=== PATIENT | female | born 1935 ===

== ENCOUNTER 2019-02-22 15:21 | Inpatient (IN) | payer MEDICARE, MEDICAID ==
[2019-02-22 15:42] VITALS: BMI 26.2
--- NOTE | 2019-02-22 16:22 | ED PDOC ---
Arrival/HPI - General Chief Complaint: Lower Extremity Problem/Injury Historian: Patient, Family - History of Present Illness Narrative History of Present Illness (Text): 02/22/19 16:51 Patient is an 84 yo female past medical history of atrial fibrillation on eliquis, also recent hospitalization reportedly for pneumonia, presents with daughter from Dr. Arrington's office for evaluation of weakness as well as episode of "low blood pressure" over the past 1-2 days. Patient reportedly was found to have a "blood pressure in the 70s" as per family at Dr. Arrington's office. Also during her recent hospitalization she was noted to have "hyrdornephosis and hydr oureter" and has complained of some chills. Patient currently denies any pain or discomfort. She denies any dizziness or lightheadedness and no change in behavior has been noted by family. She does report that occasionally she complains of leg pain but no cough or shortness of breath reported. She reportedly had uterine prolapase treated by production control clerk yesterday and has history of rectal prolapse. She currently denies any rectal or plevic pain or bleeding. Time/Duration: Prior to Arrival Symptom Onset: Gradual Past Medical History - Provider Review Nursing Documentation Reviewed: Yes - Cardiac Hx Atrial Fibrillation: Yes Hx Hypertension: Yes - Pulmonary Hx Chronic Obstructive Pulmonary Disease (COPD): Yes Hx Emphysema: Yes - HEENT Other/Comment: Hard of hearing - Renal Hx Renal Disorder: Yes - Endocrine/Metabolic Hx Diabetes Mellitus Type 2: Yes - Gastrointestinal Other/Comment: Rectal prolapse - Psychiatric Hx Depression: Yes Hx Substance Use: No Family/Social History - Physician Review Nursing Documentation Reviewed: Yes Family/Social History: Unknown Family HX Smoking Status: Never Smoked Hx Alcohol Use: No Hx Substance Use: No Allergies/Home Meds Allergies/Adverse Reactions: Allergies No Known Allergies Allergy (Verified 02/22/19 15:42) Home Medications: Home Meds Medication Instructions Recorded Confirmed Apixaban [Eliquis] 2.5 mg PO BID 02/23/19 02/23/19 Aspirin [Aspirin Chewable] 81 mg PO DAILY 02/23/19 02/23/19 Atorvastatin [Lipitor] 20 mg PO DIN 02/23/19 02/23/19 Clonazepam [Klonopin] 0.5 mg PO HS 02/23/19 02/23/19 Cyproheptadine [Periactin] 4 mg PO DAILY 02/23/19 02/23/19 Diltiazem HCl [Cartia Xt] 180 mg PO DAILY 02/23/19 02/23/19 Docusate [Colace] 200 mg PO DAILY 02/23/19 02/23/19 Megestrol Acetate [Megace] 40 mg PO DAILY 02/23/19 02/23/19 Montelukast [Singulair] 10 mg PO HS 02/23/19 02/23/19 Mv,Min10/Folic Acid/D3/Ala/Lut 1 tab PO DAILY 02/23/19 02/23/19 [Strovite One Caplet] SITagliptin [Januvia] 50 mg PO DAILY 02/23/19 02/23/19 Sertraline [Zoloft] 100 mg PO DAILY 02/23/19 02/23/19 Review of Systems - Review of Systems Systems not reviewed;Unavailable: Language Barrier (daughter translates) Constitutional: Fatigue. absent: Fevers Eyes: absent: Vision Changes ENT: absent: Hearing Changes Respiratory: absent: SOB, Cough Cardiovascular: absent: Chest Pain, Palpitations Gastrointestinal: Stool Changes. absent: Abdominal Pain, Constipation, Vomiting, Food Intolerance Genitourinary Female: Vaginal Discharge. absent: Dysuria, Frequency, Hematuria Musculoskeletal: absent: Back Pain Skin: absent: Rash Neurological: absent: Headache, Dizziness, Focal Weakness Endocrine: absent: Polyuria Hemo/Lymphatic: absent: Easy Bleeding Psychiatric: absent: Depression Physical Exam Vital Signs Reviewed: Yes Vital Signs Temp Pulse Resp BP Pulse Ox 02/22/19 15:42 98.3 F 88 18 100/59 L 99 Temperature: Afebrile Blood Pressure: Hypotensive Pulse: Regular Respiratory Rate: Normal Appearance: Positive for: Well-Appearing, Non-Toxic, Comfortable - Systems Exam Head: Present: Atraumatic Pupils: Present: PERRL Extroacular Muscles: Present: EOMI Mouth: Present: Moist Mucous Membranes Pharnyx: No: ERYTHEMA Neck: Present: Normal Range of Motion. No: Meningeal Signs Respiratory/Chest: Present: Clear to Auscultation. No: Respiratory Distress Cardiovascular: Present: Murmurs, Irregular Rhythm Abdomen: No: Tenderness, Distention Rectal: Present: Other (no prolapse currently, some irritaion around anus, stool is brown with no active bleeding) Genitourinary/Pelvic Exam: Present: Other (exam performed with RN call center trainer at 1945. Patient with no prolapse noted, no active bleeding, there is mild erythem and irriation around vulva but no ulcerations or active bleeding or purulence) Back: No: CVA Tenderness Upper Extremity: Present: NORMAL PULSES. No: Edema Lower Extremity: Present: CALF TENDERNESS, Other (mild pain to left knee but no warmth or eyrhthema, no hip pain) Neurological: Present: Motor Func Grossly Intact, Normal Sensory Function Skin: Present: Warm Psychiatric: Present: Alert, Normal Insight Medical Decision Making ED Course and Treatment: 02/22/19 16:20 Impression:Patient sent for evaluation by Dr. Arrington. On initial exam, mildly hypotensive although no complaints of dizziness, chest pain, shortenss of breath, or lightheadedness. Blood pressure improved without intervention. She is in atrial fibrillation which she has prior hx of of, rate controlled. No active pelvic or rectal bleeding noted. Daughter states patient had CT obtained on 02/10/19 which read "bilateral hydronephrosis and hydroureter. 2mm nonobstructing calculus of the distal left ureter" as per radiology report by Dr. Chuy Good. She denies any abdominal or back pain. UA pending at this time. Progress Notes: 02/22/19 18:27 Ultrasound lower extremity reviewed by radiologist, shows: No sonographic evidence for deep venous thrombosis in the visualized segments of both lower extremities. 02/22/19 20:07 With serial exams, she remains comfortable with improved blood pressure. WBC elevated, although afebrile, no cough or respiratroy symptoms, and lactate unremarkable. She is not tachycardic or hypotensive or febrile currently. Case discussed with Dr. Harp who requests telemetry admission based on episodes of weakness and hypotension prior to arrival. Daughter and patient updated with treatment plan. - RAD Interpretation Radiology Orders: 02/22/19 16:03 CHEST ONE VIEW [RAD] Stat 02/22/19 16:04 DUPLEX LOWER EXTRM VEIN BILAT [US] Stat - EKG Interpretation EKG Interpretation (Text): EKG at 1647 atrial fibrillation rate of 84 with low voltage qrs, Interpreted by ED Physician: Yes Type: 12 lead EKG - Scribe Statement The provider has reviewed the documentation as recorded by the Farshadibmandy Tony All medical record entries made by the Farshadibe were at my direction and personally dictated by me. I have reviewed the chart and agree that the record accurately reflects my personal performance of the history, physical exam, medical decision making, and the department course for this patient. I have also personally directed, reviewed, and agree with the discharge instructions and disposition. Disposition/Present on Arrival - Present on Arrival Any Indicators Present on Arrival: No History of DVT/PE: No History of Uncontrolled Diabetes: No Urinary Catheter: No History of Decub. Ulcer: No History Surgical Site Infection Following: None - Disposition Have Diagnosis and Disposition been Completed?: Yes Diagnosis: Hypotension, Leukocytosis, Hydronephrosis Disposition: HOSPITALIZED Disposition Time: 20:12 Patient Plan: Admission, Telemetry Patient Problems: Current Active Problems Problem Status Onset Hydronephrosis Acute Hypotension Acute Leukocytosis Acute Condition: FAIR
[2019-02-22 16:57] LABS: BASO # 0.03 K/mm3 (0.0-2.0); BASO % 0.2 % (0.0-3.0); EOS # 0.1 (0.0-0.7); EOS % 0.4 % (1.5-5.0); HEMOGLOBIN 11.1 g/dL (12.0-16.0); LYMPH # 2.3 (1.2-3.4); LYMPH % 13.9 % (22.0-35.0); MEAN CELL VOLUME 83.8 fl (80.0-105.0); MEAN CORPUSCULAR HEMOGLOBIN 26.4 pg (25.0-35.0); MEAN CORPUSCULAR HGB CONC 31.4 g/dl (31.0-37.0); MEAN PLATELET VOLUME 8.4 fl (7.0-11.0); MONO # 1.2 (0.1-0.6); MONO % 7.1 % (1.0-6.0); RBC 4.21 10^6/uL (3.5-6.1); RED CELL DISTRIBUTION WIDTH 16.7 % (11.5-14.5); WHITE BLOOD COUNT 16.4 10^3/uL (4.5-11.0)
[2019-02-22 17:02] LABS: VENOUS BLOOD GAS BASE EXCESS -1.3 mmol/L (0.0-2.0); VENOUS BLOOD GAS PO2 35 mm/Hg (30-55); VENOUS BLOOD PH 7.36 (7.32-7.43)
[2019-02-22 17:03] LABS: INR 1.41; PARTIAL THROMBOPLASTIN TIME 30.8 Seconds (26.9-38.3); PROTHROMBIN TIME 15.7 SECONDS (9.4-12.5)
[2019-02-22 17:28] LABS: ALB/GLOB RATIO 1.1 (1.1-1.8); ALBUMIN 3.5 g/dL (3.0-4.8); ALT/SGPT 31 U/L (7-56); AST/SGOT 66 U/L (14-36); BLOOD UREA NITROGEN 36 mg/dL (7-21); CALCIUM 9.2 mg/dL (8.4-10.5); GFR NON-AFRICAN AMERICAN 53
[2019-02-22 17:40] LABS: B-TYPE NATRIURETIC PEPTIDE 828 pg/mL (0-450); TROPONIN I < 0.01 ng/mL
--- NOTE | 2019-02-22 17:52 | US ---
HISTORY: Leg pain and swelling. Evaluate for DVT PHYSICIAN(S): Chuy Garrido MD. TECHNIQUE: Duplex sonography and color-flow Doppler with graded compression were used to evaluate the deep venous systems of both lower extremities. FINDINGS: The visualized deep venous systems of both lower extremities are sonographically normal and compressible. Normal wave forms and augmentation are seen. There is no sonographic evidence for deep venous thrombosis in the visualized segments of both lower extremities. IMPRESSION: No sonographic evidence for deep venous thrombosis in the visualized segments of both lower extremities.
[2019-02-22 19:35] LABS: PH,URINE 6.5 (4.7-8.0); URINE APPEARANCE CLEAR (CLEAR); URINE BILIRUBIN NEGATIVE (NEGATIVE); URINE BLOOD NEGATIVE (NEGATIVE); URINE COLOR LIGHT YELLOW (YELLOW); URINE GLUCOSE (UA) NEGATIVE (NEGATIVE); URINE LEUKOCYTE ESTERASE NEGATIVE Leu/uL (NEGATIVE); URINE PROTEIN NEGATIVE mg/dL (<30 mg/dL); URINE UROBILINOGEN 0.2 E.U./dL (<1 E.U./dL)
[2019-02-23] MEDS: Sodium Chloride 0.9% 1,000 ML IV SCH ×2 (01:08→21:55)
[2019-02-23 07:02] LABS: HEMOGLOBIN 10.6 g/dL (12.0-16.0); MEAN CELL VOLUME 82.6 fl (80.0-105.0); MEAN CORPUSCULAR HEMOGLOBIN 25.7 pg (25.0-35.0); MEAN CORPUSCULAR HGB CONC 31.1 g/dl (31.0-37.0); MEAN PLATELET VOLUME 8.6 fl (7.0-11.0); RBC 4.13 10^6/uL (3.5-6.1); RED CELL DISTRIBUTION WIDTH 16.5 % (11.5-14.5); WHITE BLOOD COUNT 14.8 10^3/uL (4.5-11.0)
[2019-02-23 07:13] LABS: LDL CHOLESTEROL 40 mg/dL (0-129)
[2019-02-23 07:17] LABS: BLOOD UREA NITROGEN 28 mg/dL (7-21); CALCIUM 8.8 mg/dL (8.4-10.5); GFR NON-AFRICAN AMERICAN 60; HDL CHOLESTEROL 31 mg/dL (29-60)
[2019-02-23 07:50] LABS: IRON 35 ug/dL (45-180)
[2019-02-23 07:59] LABS: % IRON SATURATION 10 % (20-55); TOTAL IRON BINDING CAPACITY 354 ug/dL (265-497)
--- NOTE | 2019-02-23 08:16 | CP.PCM.CON ---
<Aniceto Arthur Liz - Last Filed: 02/23/19 08:16> History of Present Illness - History of Present Illness History of Present Illness: General Surgery: Dr Lombardi Pt is a 84F w/ afib on Eliquis. Additional PMH unknown at this time. She was brought to ED by her daughter for hypotension. There have been no hypotensive episodes since arrival to the ED. Daughter is not currently present. Pt is turkish speaking. She is oriented to person and place, but does not know why she is in the hospital. Per EMR, pt recently was treated surgically for her uterine prolapse. She has no knowledge of this. She is unable to describe why she was brought in, or what her symptoms are. She denies any pain, nausea, vomiting, fevers or chills. She has been voiding and having BMs without difficulty. Per nursing staff she had some scant spotting on her diaper. Of note, pt does have leukocytosis. Surgery was consulted for history of rectal prolapse. Review of Systems - Review of Systems Systems not reviewed;Unavailable: Altered Mental Status All systems: reviewed and no additional remarkable complaints except (as per hpi) Past Patient History - Past Social History Smoking Status: Never Smoked - CARDIAC Hx Cardiac Disorders: Yes Hx Cardia Arrhythmia: Yes (a FIB) Hx Hypertension: Yes - PULMONARY Hx Respiratory Disorders: Yes Hx Chronic Obstructive Pulmonary Disease (COPD): Yes Hx Emphysema: Yes - NEUROLOGICAL Hx Neurological Disorder: No - HEENT Hx HEENT Problems: No Other/Comment: Hard of hearing - RENAL Hx Chronic Kidney Disease: Yes - ENDOCRINE/METABOLIC Hx Endocrine Disorders: Yes Hx Diabetes Mellitus Type 2: Yes - HEMATOLOGICAL/ONCOLOGICAL Hx Blood Disorders: No - INTEGUMENTARY Hx Dermatological Problems: No - MUSCULOSKELETAL/RHEUMATOLOGICAL Hx Musculoskeletal Disorders: No Hx Falls: Yes - GASTROINTESTINAL Hx Gastrointestinal Disorders: No Other/Comment: Rectal prolapse - GENITOURINARY/GYNECOLOGICAL Hx Genitourinary Disorders: No - PSYCHIATRIC Hx Psychophysiologic Disorder: Yes Hx Depression: Yes Hx Substance Use: No - SURGICAL HISTORY Hx Surgeries: No Meds Allergies/Adverse Reactions: Allergies Allergy/AdvReac Type Severity Reaction Status Date / Time No Known Allergies Allergy Verified 02/22/19 15:42 - Medications Medications: Current Medications Acetaminophen (Tylenol 325mg Tab) 650 mg PO Q4H PRN PRN Reason: pain fever Apixaban (Eliquis) 2.5 mg PO BID [facility]; Protocol Aspirin (Ecotrin) 81 mg PO DAILY [facility] Famotidine (Pepcid) 40 mg PO HS [facility] Sodium Chloride (Sodium Chloride 0.9%) 1,000 mls @ 60 mls/hr IV .[id number] [facility] Last Admin: 02/23/19 01:08 Dose: 60 mls/hr Ceftriaxone Sodium (Rocephin 1 Gram Ivpb) 1 gm in 100 mls @ 100 mls/hr IVPB DAILY [facility]; Protocol Insulin Human Regular (Humulin R Low) 0 units SC ACHS [facility]; Protocol Physical Exam - Constitutional Appears: Non-toxic - Respiratory Exam Respiratory Exam: absent: Accessory Muscle Use, Respiratory Distress - GI/Abdominal Exam GI & Abdominal Exam: Soft. absent: Distended, Firm, Guarding Additional comments: no recent incisions noted - Rectal Exam Additional comments: rectum not currently prolapsed no hemorrhoids noted diminished rectal tone no jose blood - Extremities Exam Extremities exam: Negative for: pedal edema - Neurological Exam Neurological exam: Alert Additional comments: appears disoriented to time - Psychiatric Exam Psychiatric exam: Anxious - Skin Skin Exam: Normal Color Results - Vital Signs Recent Vital Signs: Last Vital Signs Temp 97.3 F L 02/23/19 01:00 Pulse 76 02/23/19 06:00 Resp 20 02/23/19 01:00 BP 124/66 02/23/19 01:00 Pulse Ox 97 02/23/19 01:00 - Labs Result Diagrams: 02/23/19 06:30 02/23/19 06:30 Labs: Laboratory Results - last 24 hr 02/22/19 02/22/19 02/22/19 16:40 16:40 16:40 WBC 16.4 H RBC 4.21 Hgb 11.1 L Hct 35.3 L MCV 83.8 MCH 26.4 MCHC 31.4 RDW 16.7 H Plt Count 430 MPV 8.4 Neut % (Auto) 78.4 H Lymph % (Auto) 13.9 L Graves % (Auto) 7.1 H Eos % (Auto) 0.4 L Baso % (Auto) 0.2 Lymph # (Auto) 2.3 Graves # (Auto) 1.2 H Eos # (Auto) 0.1 Baso # (Auto) 0.03 Absolute Neuts (auto) 12.90 H PT 15.7 H INR 1.41 APTT 30.8 pO2 VBG pH VBG pCO2 VBG HCO3 VBG Total CO2 VBG O2 Sat (Calc) VBG Base Excess VBG Potassium Glucose Lactate FiO2 Sodium 139 Potassium 4.7 Chloride 109 H Carbon Dioxide 24 Anion Gap 11 BUN 36 H Creatinine 1.0 Est GFR ( Amer) > 60 Est GFR (Non-Af Amer) 53 POC Glucose (mg/dL) Random Glucose 94 Calcium 9.2 Iron TIBC % Saturation Total Bilirubin 0.3 AST 66 H ALT 31 Alkaline Phosphatase 60 Lactate Dehydrogenase 382 Total Creatine Kinase 21 L Troponin I < 0.01 NT-Pro-B Natriuret Pep 828 H Total Protein 6.7 Albumin 3.5 Globulin 3.2 Albumin/Globulin Ratio 1.1 Triglycerides Cholesterol LDL Cholesterol Direct HDL Cholesterol TSH 3rd Generation Venous Blood Potassium Urine Color Urine Appearance Urine pH Ur Specific [place] Urine Protein Urine Glucose (UA) Urine Ketones Urine Blood Urine Nitrate Urine Bilirubin Urine Urobilinogen Ur Leukocyte Esterase 02/22/19 02/22/19 02/22/19 16:50 18:04 19:20 WBC RBC Hgb Hct MCV MCH MCHC RDW Plt Count MPV Neut % (Auto) Lymph % (Auto) Graves % (Auto) Eos % (Auto) Baso % (Auto) Lymph # (Auto) Graves # (Auto) Eos # (Auto) Baso # (Auto) Absolute Neuts (auto) PT INR APTT pO2 35 VBG pH 7.36 VBG pCO2 43.0 VBG HCO3 24.3 VBG Total CO2 25.6 VBG O2 Sat (Calc) 69.2 H VBG Base Excess -1.3 L VBG Potassium 4.5 Glucose 89 Lactate 0.9 FiO2 21.0 Sodium 138.0 Potassium Chloride 110.0 H Carbon Dioxide Anion Gap BUN Creatinine Est GFR ( Amer) Est GFR (Non-Af Amer) POC Glucose (mg/dL) 97 Random Glucose Calcium Iron TIBC % Saturation Total Bilirubin AST ALT Alkaline Phosphatase Lactate Dehydrogenase Total Creatine Kinase Troponin I NT-Pro-B Natriuret Pep Total Protein Albumin Globulin Albumin/Globulin Ratio Triglycerides Cholesterol LDL Cholesterol Direct HDL Cholesterol TSH 3rd Generation Venous Blood Potassium 4.5 Urine Color Light yellow Urine Appearance Clear Urine pH 6.5 Ur Specific [place] 1.015 Urine Protein Negative Urine Glucose (UA) Negative Urine Ketones Negative Urine Blood Negative Urine Nitrate Negative Urine Bilirubin Negative Urine Urobilinogen 0.2 Ur Leukocyte Esterase Negative 02/23/19 02/23/19 02/23/19 06:30 06:30 06:30 WBC 14.8 H RBC 4.13 Hgb 10.6 L Hct 34.1 L MCV 82.6 MCH 25.7 MCHC 31.1 RDW 16.5 H Plt Count 441 MPV 8.6 Neut % (Auto) Lymph % (Auto) Graves % (Auto) Eos % (Auto) Baso % (Auto) Lymph # (Auto) Graves # (Auto) Eos # (Auto) Baso # (Auto) Absolute Neuts (auto) PT INR APTT pO2 VBG pH VBG pCO2 VBG HCO3 VBG Total CO2 VBG O2 Sat (Calc) VBG Base Excess VBG Potassium Glucose Lactate FiO2 Sodium 140 Potassium 4.3 Chloride 112 H Carbon Dioxide 23 Anion Gap 9 L BUN 28 H Creatinine 0.9 Est GFR ( Amer) > 60 Est GFR (Non-Af Amer) 60 POC Glucose (mg/dL) Random Glucose 88 Calcium 8.8 Iron 35 L TIBC 354 % Saturation 10 L Total Bilirubin AST ALT Alkaline Phosphatase Lactate Dehydrogenase Total Creatine Kinase Troponin I NT-Pro-B Natriuret Pep Total Protein Albumin Globulin Albumin/Globulin Ratio Triglycerides 108 Cholesterol 84 L LDL Cholesterol Direct 40 HDL Cholesterol 31 TSH 3rd Generation Venous Blood Potassium Urine Color Urine Appearance Urine pH Ur Specific [place] Urine Protein Urine Glucose (UA) Urine Ketones Urine Blood Urine Nitrate Urine Bilirubin Urine Urobilinogen Ur Leukocyte Esterase 02/23/19 02/23/19 06:30 07:17 WBC RBC Hgb Hct MCV MCH MCHC RDW Plt Count MPV Neut % (Auto) Lymph % (Auto) Graves % (Auto) Eos % (Auto) Baso % (Auto) Lymph # (Auto) Graves # (Auto) Eos # (Auto) Baso # (Auto) Absolute Neuts (auto) PT INR APTT pO2 VBG pH VBG pCO2 VBG HCO3 VBG Total CO2 VBG O2 Sat (Calc) VBG Base Excess VBG Potassium Glucose Lactate FiO2 Sodium Potassium Chloride Carbon Dioxide Anion Gap BUN Creatinine Est GFR ( Amer) Est GFR (Non-Af Amer) POC Glucose (mg/dL) 93 Random Glucose Calcium Iron TIBC % Saturation Total Bilirubin AST ALT Alkaline Phosphatase Lactate Dehydrogenase Total Creatine Kinase Troponin I NT-Pro-B Natriuret Pep Total Protein Albumin Globulin Albumin/Globulin Ratio Triglycerides Cholesterol LDL Cholesterol Direct HDL Cholesterol TSH 3rd Generation 3.40 Venous Blood Potassium Urine Color Urine Appearance Urine pH Ur Specific [place] Urine Protein Urine Glucose (UA) Urine Ketones Urine Blood Urine Nitrate Urine Bilirubin Urine Urobilinogen Ur Leukocyte Esterase Assessment & Plan - Assessment and Plan (Free Text) Assessment: 84F admitted for hypotension after reported recent uterine prolapse procedure; possibly with AMS (baseline unknown), also hx of rectal prolapse Plan: trend HgB recommend jackman-culture for leukocytosis and possible source of infection/AMS will evaluate for rectal prolapse repair but in setting of possible SIRS would not be an ideal time Further recommendations pending Dr Lombardi evaluation d/w Dr. Harjit Arthur, PGY4 <Alexey Lombardi - Last Filed: 02/23/19 15:42> Meds - Medications Medications: Current Medications Acetaminophen (Tylenol 325mg Tab) 650 mg PO Q4H PRN PRN Reason: pain fever Apixaban (Eliquis) 2.5 mg PO BID [facility]; Protocol Last Admin: 02/23/19 10:37 Dose: 2.5 mg Aspirin (Ecotrin) 81 mg PO DAILY [facility] [place] Last Admin: 02/23/19 10:37 Dose: 81 mg Famotidine (Pepcid) 40 mg PO HS [facility] [place] Sodium Chloride (Sodium Chloride 0.9%) 1,000 mls @ 60 mls/hr IV .[id number] [facility] [place] Last Admin: 02/23/19 01:08 Dose: 60 mls/hr Metronidazole (Flagyl) 500 mg in 100 mls @ 100 mls/hr IVPB Q8 [facility]; Protocol Cefepime HCl (Maxipime 1gm) 1 gm in 100 mls @ 100 mls/hr IVPB Q12 [facility] [place]; Protocol Insulin Human Regular (Humulin R Low) 0 units SC ACHS [facility]; Protocol Last Admin: 02/23/19 11:46 Dose: Not Given Levalbuterol HCl (Xopenex) 0.63 mg IH [id number] PRN PRN Reason: Shortness of Breath Results - Vital Signs Recent Vital Signs: Last Vital Signs Temp 97.5 F L 02/23/19 06:00 Pulse 87 02/23/19 06:00 Resp 20 02/23/19 06:00 BP 117/68 02/23/19 06:00 Pulse Ox 96 02/23/19 06:00 - Labs Result Diagrams: 02/23/19 06:30 02/23/19 06:30 Labs: Laboratory Results - last 24 hr 02/22/19 02/22/19 02/22/19 16:40 16:40 16:40 WBC 16.4 H RBC 4.21 Hgb 11.1 L Hct 35.3 L MCV 83.8 MCH 26.4 MCHC 31.4 RDW 16.7 H Plt Count 430 MPV 8.4 Neut % (Auto) 78.4 H Lymph % (Auto) 13.9 L Graves % (Auto) 7.1 H Eos % (Auto) 0.4 L Baso % (Auto) 0.2 Lymph # (Auto) 2.3 Graves # (Auto) 1.2 H Eos # (Auto) 0.1 Baso # (Auto) 0.03 Absolute Neuts (auto) 12.90 H PT 15.7 H INR 1.41 APTT 30.8 pO2 VBG pH VBG pCO2 VBG HCO3 VBG Total CO2 VBG O2 Sat (Calc) VBG Base Excess VBG Potassium Glucose Lactate FiO2 Sodium 139 Potassium 4.7 Chloride 109 H Carbon Dioxide 24 Anion Gap 11 BUN 36 H Creatinine 1.0 Est GFR ( Amer) > 60 Est GFR (Non-Af Amer) 53 POC Glucose (mg/dL) Random Glucose 94 Hemoglobin A1c Calcium 9.2 Iron TIBC % Saturation Total Bilirubin 0.3 AST 66 H ALT 31 Alkaline Phosphatase 60 Lactate Dehydrogenase 382 Total Creatine Kinase 21 L Troponin I < 0.01 NT-Pro-B Natriuret Pep 828 H Total Protein 6.7 Albumin 3.5 Globulin 3.2 Albumin/Globulin Ratio 1.1 Triglycerides Cholesterol LDL Cholesterol Direct HDL Cholesterol Vitamin B12 Folate Procalcitonin TSH 3rd Generation Venous Blood Potassium Urine Color Urine Appearance Urine pH Ur Specific [place] Urine Protein Urine Glucose (UA) Urine Ketones Urine Blood Urine Nitrate Urine Bilirubin Urine Urobilinogen Ur Leukocyte Esterase 02/22/19 02/22/19 02/22/19 16:50 18:04 19:20 WBC RBC Hgb Hct MCV MCH MCHC RDW Plt Count MPV Neut % (Auto) Lymph % (Auto) [place] % (Auto) Eos % (Auto) Baso % (Auto) Lymph # (Auto) [place] # (Auto) Eos # (Auto) Baso # (Auto) Absolute Neuts (auto) PT INR APTT pO2 35 VBG pH 7.36 VBG pCO2 43.0 VBG HCO3 24.3 VBG Total CO2 25.6 VBG O2 Sat (Calc) 69.2 H VBG Base Excess -1.3 L VBG Potassium 4.5 Glucose 89 Lactate 0.9 FiO2 21.0 Sodium 138.0 Potassium Chloride 110.0 H Carbon Dioxide Anion Gap BUN Creatinine Est GFR ( Amer) Est GFR (Non-Af Amer) POC Glucose (mg/dL) 97 Random Glucose Hemoglobin A1c Calcium Iron TIBC % Saturation Total Bilirubin AST ALT Alkaline Phosphatase Lactate Dehydrogenase Total Creatine Kinase Troponin I NT-Pro-B Natriuret Pep Total Protein Albumin Globulin Albumin/Globulin Ratio Triglycerides Cholesterol LDL Cholesterol Direct HDL Cholesterol Vitamin B12 Folate Procalcitonin TSH 3rd Generation Venous Blood Potassium 4.5 Urine Color Light yellow Urine Appearance Clear Urine pH 6.5 Ur Specific [place] 1.015 Urine Protein Negative Urine Glucose (UA) Negative Urine Ketones Negative Urine Blood Negative Urine Nitrate Negative Urine Bilirubin Negative Urine Urobilinogen 0.2 Ur Leukocyte Esterase Negative 02/23/19 02/23/19 02/23/19 06:30 06:30 06:30 WBC 14.8 H RBC 4.13 Hgb 10.6 L Hct 34.1 L MCV 82.6 MCH 25.7 MCHC 31.1 RDW 16.5 H Plt Count 441 MPV 8.6 Neut % (Auto) Lymph % (Auto) [place] % (Auto) Eos % (Auto) Baso % (Auto) Lymph # (Auto) [place] # (Auto) Eos # (Auto) Baso # (Auto) Absolute Neuts (auto) PT INR APTT pO2 VBG pH VBG pCO2 VBG HCO3 VBG Total CO2 VBG O2 Sat (Calc) VBG Base Excess VBG Potassium Glucose Lactate FiO2 Sodium Potassium Chloride Carbon Dioxide Anion Gap BUN Creatinine Est GFR ( Amer) Est GFR (Non-Af Amer) POC Glucose (mg/dL) Random Glucose Hemoglobin A1c 6.3 Calcium Iron 35 L TIBC 354 % Saturation 10 L Total Bilirubin AST ALT Alkaline Phosphatase Lactate Dehydrogenase Total Creatine Kinase Troponin I NT-Pro-B Natriuret Pep Total Protein Albumin Globulin Albumin/Globulin Ratio Triglycerides Cholesterol LDL Cholesterol Direct HDL Cholesterol Vitamin B12 Folate Procalcitonin TSH 3rd Generation Venous Blood Potassium Urine Color Urine Appearance Urine pH Ur Specific [place] Urine Protein Urine Glucose (UA) Urine Ketones Urine Blood Urine Nitrate Urine Bilirubin Urine Urobilinogen Ur Leukocyte Esterase 02/23/19 02/23/19 02/23/19 06:30 06:30 07:17 WBC RBC Hgb Hct MCV MCH MCHC RDW Plt Count MPV Neut % (Auto) Lymph % (Auto) [place] % (Auto) Eos % (Auto) Baso % (Auto) Lymph # (Auto) [place] # (Auto) Eos # (Auto) Baso # (Auto) Absolute Neuts (auto) PT INR APTT pO2 VBG pH VBG pCO2 VBG HCO3 VBG Total CO2 VBG O2 Sat (Calc) VBG Base Excess VBG Potassium Glucose Lactate FiO2 Sodium 140 Potassium 4.3 Chloride 112 H Carbon Dioxide 23 Anion Gap 9 L BUN 28 H Creatinine 0.9 Est GFR ( Amer) > 60 Est GFR (Non-Af Amer) 60 POC Glucose (mg/dL) 93 Random Glucose 88 Hemoglobin A1c Calcium 8.8 Iron TIBC % Saturation Total Bilirubin AST ALT Alkaline Phosphatase Lactate Dehydrogenase Total Creatine Kinase Troponin I NT-Pro-B Natriuret Pep Total Protein Albumin Globulin Albumin/Globulin Ratio Triglycerides 108 Cholesterol 84 L LDL Cholesterol Direct 40 HDL Cholesterol 31 Vitamin B12 585 Folate 16.5 Procalcitonin TSH 3rd Generation 3.40 Venous Blood Potassium Urine Color Urine Appearance Urine pH Ur Specific [place] Urine Protein Urine Glucose (UA) Urine Ketones Urine Blood Urine Nitrate Urine Bilirubin Urine Urobilinogen Ur Leukocyte Esterase 02/23/19 02/23/19 02/23/19 07:30 11:30 13:45 WBC RBC Hgb Hct MCV MCH MCHC RDW Plt Count MPV Neut % (Auto) Lymph % (Auto) [place] % (Auto) Eos % (Auto) Baso % (Auto) Lymph # (Auto) [place] # (Auto) Eos # (Auto) Baso # (Auto) Absolute Neuts (auto) PT INR APTT pO2 VBG pH VBG pCO2 VBG HCO3 VBG Total CO2 VBG O2 Sat (Calc) VBG Base Excess VBG Potassium Glucose Lactate FiO2 Sodium Potassium Chloride Carbon Dioxide Anion Gap BUN Creatinine Est GFR ( Amer) Est GFR (Non-Af Amer) POC Glucose (mg/dL) 116 H Random Glucose Hemoglobin A1c Calcium Iron TIBC % Saturation Total Bilirubin AST ALT Alkaline Phosphatase Lactate Dehydrogenase Total Creatine Kinase Troponin I NT-Pro-B Natriuret Pep Total Protein Albumin Globulin Albumin/Globulin Ratio Triglycerides Cholesterol LDL Cholesterol Direct HDL Cholesterol Vitamin B12 Folate Procalcitonin < 0.05 L TSH 3rd Generation Venous Blood Potassium Urine Color Yellow Urine Appearance Clear Urine pH 7.0 Ur Specific [place] 1.015 Urine Protein Negative Urine Glucose (UA) Negative Urine Ketones Negative Urine Blood Negative Urine Nitrate Negative Urine Bilirubin Negative Urine Urobilinogen 0.2 Ur Leukocyte Esterase Negative Assessment & Plan - Assessment and Plan (Free Text) Assessment: Extensive history from daughter: C/O L Knee swelling-Pain(none evident now/-DVT) C/O OS Swelling(none now) Pt denies pain or any other problems now There is some blood on underwear BUT NOT in rectum(?Pessary placement yesterday) + Umbilical and Inguinal Hernias(tiny) The WBC is elevated and Iron low but otherwise there is no indication for surgery This consult done under my direct supervision Shira Lombardi MD FACS
[2019-02-23] MEDS: Insulin Reg-LOW-Coverage SC SCH ×4 (08:31→21:28)
--- NOTE | 2019-02-23 08:39 | RAD ---
Date of service: 02/22/2019 PROCEDURE: CHEST RADIOGRAPH, 1 VIEW HISTORY: sob COMPARISON: None available. FINDINGS: LUNGS: Clear. PLEURA: No pneumothorax or pleural fluid seen. CARDIOVASCULAR: Aortic calcification and tortuosity the heart is normal in size OSSEOUS STRUCTURES: No significant abnormalities. VISUALIZED UPPER ABDOMEN: Normal. OTHER FINDINGS: None. IMPRESSION: No active disease.
--- NOTE | 2019-02-23 09:02 | CARD ---
APPROVED REPORT Date of service: 02/22/2019 EKG Measurement Heart [id number] <Conclusion> Atrial fibrillation Low voltage QRS Abnormal ECG
[2019-02-23] MEDS ORDERED: cefTRIAXone 1 gm 1 GM/100 ML BAG IVPB SCH (10:00)
--- NOTE | 2019-02-23 10:18 | CP.PCM.CON ---
<Daniel Cooper - Last Filed: 02/23/19 15:03> History of Present Illness - History of Present Illness History of Present Illness: Infectious disease consult note: 84-year-old female with past medical history of atrial fibrillation on anticoagulation Eliquis, rectal prolapse presents to the hospital complaining of weakness and low blood pressure. Patient is poor historian therefore HPI taken from nursing and prior notes. Patient is Divehi-speaking and nurse at bedside was used for translation. Patient does not know why she was brought to the hospital. Patient was reportedly in her PMDs office for evaluation of weakness and she was found to have a low blood pressure with systolics in the 70s. Patient also had a recent hospitalization and found to have hydronephrosis and hydroureter. At this time patient denies any weakness, fevers, chills, cough, urinary symptoms. 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 No other complaints. Infectious disease was consulted for possible sepsis. 12 point ROS performed as above however limited Review of Systems - Review of Systems All systems: reviewed and no additional remarkable complaints except Past Patient History - Past Social History Smoking Status: Never Smoked - CARDIAC Hx Cardiac Disorders: Yes Hx Cardia Arrhythmia: Yes (a FIB) Hx Hypertension: Yes - PULMONARY Hx Respiratory Disorders: Yes Hx Chronic Obstructive Pulmonary Disease (COPD): Yes Hx Emphysema: Yes - NEUROLOGICAL Hx Neurological Disorder: No - HEENT Hx HEENT Problems: No Other/Comment: Hard of hearing - RENAL Hx Chronic Kidney Disease: Yes - ENDOCRINE/METABOLIC Hx Endocrine Disorders: Yes Hx Diabetes Mellitus Type 2: Yes - HEMATOLOGICAL/ONCOLOGICAL Hx Blood Disorders: No - INTEGUMENTARY Hx Dermatological Problems: No - MUSCULOSKELETAL/RHEUMATOLOGICAL Hx Musculoskeletal Disorders: No Hx Falls: Yes - GASTROINTESTINAL Hx Gastrointestinal Disorders: No Other/Comment: Rectal prolapse - GENITOURINARY/GYNECOLOGICAL Hx Genitourinary Disorders: No - PSYCHIATRIC Hx Psychophysiologic Disorder: Yes Hx Depression: Yes Hx Substance Use: No - SURGICAL HISTORY Hx Surgeries: No Meds Allergies/Adverse Reactions: Allergies Allergy/AdvReac Type Severity Reaction Status Date / Time No Known Allergies Allergy Verified 02/22/19 15:42 - Medications Medications: Current Medications Acetaminophen (Tylenol 325mg Tab) 650 mg PO Q4H PRN PRN Reason: pain fever Apixaban (Eliquis) 2.5 mg PO BID [facility]; Protocol Aspirin (Ecotrin) 81 mg PO DAILY [facility] Famotidine (Pepcid) 40 mg PO HS [facility] Sodium Chloride (Sodium Chloride 0.9%) 1,000 mls @ 60 mls/hr IV .[id number] [facility] Last Admin: 02/23/19 01:08 Dose: 60 mls/hr Ceftriaxone Sodium (Rocephin 1 Gram Ivpb) 1 gm in 100 mls @ 100 mls/hr IVPB DAILY [facility]; Protocol Insulin Human Regular (Humulin R Low) 0 units SC ACHS [facility]; Protocol Last Admin: 02/23/19 08:31 Dose: Not Given Physical Exam - Constitutional Appears: No Acute Distress - Head Exam Head Exam: ATRAUMATIC, NORMOCEPHALIC - Eye Exam Eye Exam: EOMI, PERRL - ENT Exam ENT Exam: Mucous Membranes Moist - Respiratory Exam Respiratory Exam: Clear to Auscultation Bilateral. absent: Wheezes - Cardiovascular Exam Cardiovascular Exam: REGULAR RHYTHM, +S1, +S2 - GI/Abdominal Exam GI & Abdominal Exam: Soft. absent: Distended, Tenderness - Extremities Exam Extremities exam: Negative for: calf tenderness, pedal edema - Neurological Exam Neurological exam: Alert, Oriented x3 - Psychiatric Exam Psychiatric exam: Normal Mood - Skin Skin Exam: Dry, Warm Results - Vital Signs Recent Vital Signs: Last Vital Signs Temp 97.5 F L 02/23/19 06:00 Pulse 87 02/23/19 06:00 Resp 20 02/23/19 06:00 BP 117/68 02/23/19 06:00 Pulse Ox 96 02/23/19 06:00 - Labs Result Diagrams: 02/23/19 06:30 02/23/19 06:30 Labs: Laboratory Results - last 24 hr 02/22/19 02/22/19 02/22/19 16:40 16:40 16:40 WBC 16.4 H RBC 4.21 Hgb 11.1 L Hct 35.3 L MCV 83.8 MCH 26.4 MCHC 31.4 RDW 16.7 H Plt Count 430 MPV 8.4 Neut % (Auto) 78.4 H Lymph % (Auto) 13.9 L Bowie % (Auto) 7.1 H Eos % (Auto) 0.4 L Baso % (Auto) 0.2 Lymph # (Auto) 2.3 Bowie # (Auto) 1.2 H Eos # (Auto) 0.1 Baso # (Auto) 0.03 Absolute Neuts (auto) 12.90 H PT 15.7 H INR 1.41 APTT 30.8 pO2 VBG pH VBG pCO2 VBG HCO3 VBG Total CO2 VBG O2 Sat (Calc) VBG Base Excess VBG Potassium Glucose Lactate FiO2 Sodium 139 Potassium 4.7 Chloride 109 H Carbon Dioxide 24 Anion Gap 11 BUN 36 H Creatinine 1.0 Est GFR ( Amer) > 60 Est GFR (Non-Af Amer) 53 POC Glucose (mg/dL) Random Glucose 94 Calcium 9.2 Iron TIBC % Saturation Total Bilirubin 0.3 AST 66 H ALT 31 Alkaline Phosphatase 60 Lactate Dehydrogenase 382 Total Creatine Kinase 21 L Troponin I < 0.01 NT-Pro-B Natriuret Pep 828 H Total Protein 6.7 Albumin 3.5 Globulin 3.2 Albumin/Globulin Ratio 1.1 Triglycerides Cholesterol LDL Cholesterol Direct HDL Cholesterol TSH 3rd Generation Venous Blood Potassium Urine Color Urine Appearance Urine pH Ur Specific Reed Urine Protein Urine Glucose (UA) Urine Ketones Urine Blood Urine Nitrate Urine Bilirubin Urine Urobilinogen Ur Leukocyte Esterase 02/22/19 02/22/19 02/22/19 16:50 18:04 19:20 WBC RBC Hgb Hct MCV MCH MCHC RDW Plt Count MPV Neut % (Auto) Lymph % (Auto) Bowie % (Auto) Eos % (Auto) Baso % (Auto) Lymph # (Auto) Bowie # (Auto) Eos # (Auto) Baso # (Auto) Absolute Neuts (auto) PT INR APTT pO2 35 VBG pH 7.36 VBG pCO2 43.0 VBG HCO3 24.3 VBG Total CO2 25.6 VBG O2 Sat (Calc) 69.2 H VBG Base Excess -1.3 L VBG Potassium 4.5 Glucose 89 Lactate 0.9 FiO2 21.0 Sodium 138.0 Potassium Chloride 110.0 H Carbon Dioxide Anion Gap BUN Creatinine Est GFR ( Amer) Est GFR (Non-Af Amer) POC Glucose (mg/dL) 97 Random Glucose Calcium Iron TIBC % Saturation Total Bilirubin AST ALT Alkaline Phosphatase Lactate Dehydrogenase Total Creatine Kinase Troponin I NT-Pro-B Natriuret Pep Total Protein Albumin Globulin Albumin/Globulin Ratio Triglycerides Cholesterol LDL Cholesterol Direct HDL Cholesterol TSH 3rd Generation Venous Blood Potassium 4.5 Urine Color Light yellow Urine Appearance Clear Urine pH 6.5 Ur Specific Reed 1.015 Urine Protein Negative Urine Glucose (UA) Negative Urine Ketones Negative Urine Blood Negative Urine Nitrate Negative Urine Bilirubin Negative Urine Urobilinogen 0.2 Ur Leukocyte Esterase Negative 02/23/19 02/23/19 02/23/19 06:30 06:30 06:30 WBC 14.8 H RBC 4.13 Hgb 10.6 L Hct 34.1 L MCV 82.6 MCH 25.7 MCHC 31.1 RDW 16.5 H Plt Count 441 MPV 8.6 Neut % (Auto) Lymph % (Auto) Bowie % (Auto) Eos % (Auto) Baso % (Auto) Lymph # (Auto) Bowie # (Auto) Eos # (Auto) Baso # (Auto) Absolute Neuts (auto) PT INR APTT pO2 VBG pH VBG pCO2 VBG HCO3 VBG Total CO2 VBG O2 Sat (Calc) VBG Base Excess VBG Potassium Glucose Lactate FiO2 Sodium 140 Potassium 4.3 Chloride 112 H Carbon Dioxide 23 Anion Gap 9 L BUN 28 H Creatinine 0.9 Est GFR ( Amer) > 60 Est GFR (Non-Af Amer) 60 POC Glucose (mg/dL) Random Glucose 88 Calcium 8.8 Iron 35 L TIBC 354 % Saturation 10 L Total Bilirubin AST ALT Alkaline Phosphatase Lactate Dehydrogenase Total Creatine Kinase Troponin I NT-Pro-B Natriuret Pep Total Protein Albumin Globulin Albumin/Globulin Ratio Triglycerides 108 Cholesterol 84 L LDL Cholesterol Direct 40 HDL Cholesterol 31 TSH 3rd Generation Venous Blood Potassium Urine Color Urine Appearance Urine pH Ur Specific Reed Urine Protein Urine Glucose (UA) Urine Ketones Urine Blood Urine Nitrate Urine Bilirubin Urine Urobilinogen Ur Leukocyte Esterase 02/23/19 02/23/19 06:30 07:17 WBC RBC Hgb Hct MCV MCH MCHC RDW Plt Count MPV Neut % (Auto) Lymph % (Auto) Bowie % (Auto) Eos % (Auto) Baso % (Auto) Lymph # (Auto) Bowie # (Auto) Eos # (Auto) Baso # (Auto) Absolute Neuts (auto) PT INR APTT pO2 VBG pH VBG pCO2 VBG HCO3 VBG Total CO2 VBG O2 Sat (Calc) VBG Base Excess VBG Potassium Glucose Lactate FiO2 Sodium Potassium Chloride Carbon Dioxide Anion Gap BUN Creatinine Est GFR ( Amer) Est GFR (Non-Af Amer) POC Glucose (mg/dL) 93 Random Glucose Calcium Iron TIBC % Saturation Total Bilirubin AST ALT Alkaline Phosphatase Lactate Dehydrogenase Total Creatine Kinase Troponin I NT-Pro-B Natriuret Pep Total Protein Albumin Globulin Albumin/Globulin Ratio Triglycerides Cholesterol LDL Cholesterol Direct HDL Cholesterol TSH 3rd Generation 3.40 Venous Blood Potassium Urine Color Urine Appearance Urine pH Ur Specific Reed Urine Protein Urine Glucose (UA) Urine Ketones Urine Blood Urine Nitrate Urine Bilirubin Urine Urobilinogen Ur Leukocyte Esterase Assessment & Plan - Assessment and Plan (Free Text) Assessment: Leukocytosis rule out sepsis Atrial fibrillation on anticoagulation Rectal/ uterus prolapse Anemia hydronephrosis Patient was started on Rocephin will d/c, Will start on cefepime and flagyl Follow-up septic work-up, urinalysis has been negative Chest x-ray shows no active disease Extremity ultrasound shows no DVTs Follow-up surgery consult and recommendations Follow-up urology consult for nephrolithiasis? hydronephrosis Follow-up pulmonary consult for shortness of breath Continue to monitor for any changes Case and plan to be reviewed and discussed with Dr. Reyes <Shawn Reyes - Last Filed: 02/23/19 21:45> Meds - Medications Medications: Current Medications Acetaminophen (Tylenol 325mg Tab) 650 mg PO Q4H PRN PRN Reason: pain fever Apixaban (Eliquis) 2.5 mg PO BID [facility]; Protocol Last Admin: 02/23/19 18:10 Dose: 2.5 mg Aspirin (Ecotrin) 81 mg PO DAILY [facility] Last Admin: 02/23/19 10:37 Dose: 81 mg Famotidine (Pepcid) 40 mg PO HS [facility] Sodium Chloride (Sodium Chloride 0.9%) 1,000 mls @ 60 mls/hr IV .[id number] [facility] Last Admin: 02/23/19 01:08 Dose: 60 mls/hr Metronidazole (Flagyl) 500 mg in 100 mls @ 100 mls/hr IVPB Q8 [facility]; Protocol Last Admin: 02/23/19 18:10 Dose: 100 mls/hr Cefepime HCl (Maxipime 1gm) 1 gm in 100 mls @ 100 mls/hr IVPB Q12 [facility]; Protocol Insulin Human Regular (Humulin R Low) 0 units SC ACHS [facility]; Protocol Last Admin: 02/23/19 21:28 Dose: Not Given Levalbuterol HCl (Xopenex) 0.63 mg IH [id number] PRN PRN Reason: Shortness of Breath Results - Vital Signs Recent Vital Signs: Last Vital Signs Temp 97.9 F 02/23/19 16:27 Pulse 122 H 02/23/19 18:00 Resp 18 02/23/19 16:27 BP 123/63 02/23/19 16:27 Pulse Ox 98 02/23/19 16:27 - Labs Result Diagrams: 02/23/19 06:30 02/23/19 06:30 Labs: Laboratory Results - last 24 hr 02/22/19 02/23/19 02/23/19 18:04 06:30 06:30 WBC RBC Hgb Hct MCV MCH MCHC RDW Plt Count MPV D-Dimer, Quantitative Sodium Potassium Chloride Carbon Dioxide Anion Gap BUN Creatinine Est GFR ( Amer) Est GFR (Non-Af Amer) POC Glucose (mg/dL) 97 Random Glucose Hemoglobin A1c 6.3 Calcium Iron 35 L TIBC 354 % Saturation 10 L Triglycerides Cholesterol LDL Cholesterol Direct HDL Cholesterol Vitamin B12 25-OH Vitamin D Total Folate Procalcitonin TSH 3rd Generation Urine Color Urine Appearance Urine pH Ur Specific Reed Urine Protein Urine Glucose (UA) Urine Ketones Urine Blood Urine Nitrate Urine Bilirubin Urine Urobilinogen Ur Leukocyte Esterase 02/23/19 02/23/19 02/23/19 06:30 06:30 06:30 WBC 14.8 H RBC 4.13 Hgb 10.6 L Hct 34.1 L MCV 82.6 MCH 25.7 MCHC 31.1 RDW 16.5 H Plt Count 441 MPV 8.6 D-Dimer, Quantitative Sodium 140 Potassium 4.3 Chloride 112 H Carbon Dioxide 23 Anion Gap 9 L BUN 28 H Creatinine 0.9 Est GFR ( Amer) > 60 Est GFR (Non-Af Amer) 60 POC Glucose (mg/dL) Random Glucose 88 Hemoglobin A1c Calcium 8.8 Iron TIBC % Saturation Triglycerides 108 Cholesterol 84 L LDL Cholesterol Direct 40 HDL Cholesterol 31 Vitamin B12 585 25-OH Vitamin D Total Folate 16.5 Procalcitonin TSH 3rd Generation 3.40 Urine Color Urine Appearance Urine pH Ur Specific Reed Urine Protein Urine Glucose (UA) Urine Ketones Urine Blood Urine Nitrate Urine Bilirubin Urine Urobilinogen Ur Leukocyte Esterase 05/22/19 05/22/19 05/22/19 07:17 07:30 11:30 WBC RBC Hgb Hct MCV MCH MCHC RDW Plt Count MPV D-Dimer, Quantitative Sodium Potassium Chloride Carbon Dioxide Anion Gap BUN Creatinine Est GFR ( Amer) Est GFR (Non-Af Amer) POC Glucose (mg/dL) 93 116 H Random Glucose Hemoglobin A1c Calcium Iron TIBC % Saturation Triglycerides Cholesterol LDL Cholesterol Direct HDL Cholesterol Vitamin B12 25-OH Vitamin D Total Folate Procalcitonin < 0.05 L TSH 3rd Generation Urine Color Urine Appearance Urine pH Ur Specific Reed Urine Protein Urine Glucose (UA) Urine Ketones Urine Blood Urine Nitrate Urine Bilirubin Urine Urobilinogen Ur Leukocyte Esterase 02/23/19 02/23/19 02/23/19 13:45 16:09 17:13 WBC RBC Hgb Hct MCV MCH MCHC RDW Plt Count MPV D-Dimer, Quantitative 279 H Sodium Potassium Chloride Carbon Dioxide Anion Gap BUN Creatinine Est GFR ( Amer) Est GFR (Non-Af Amer) POC Glucose (mg/dL) 106 Random Glucose Hemoglobin A1c Calcium Iron TIBC % Saturation Triglycerides Cholesterol LDL Cholesterol Direct HDL Cholesterol Vitamin B12 25-OH Vitamin D Total Folate Procalcitonin TSH 3rd Generation Urine Color Yellow Urine Appearance Clear Urine pH 7.0 Ur Specific Reed 1.015 Urine Protein Negative Urine Glucose (UA) Negative Urine Ketones Negative Urine Blood Negative Urine Nitrate Negative Urine Bilirubin Negative Urine Urobilinogen 0.2 Ur Leukocyte Esterase Negative 02/23/19 02/23/19 17:13 21:27 WBC RBC Hgb Hct MCV MCH MCHC RDW Plt Count MPV D-Dimer, Quantitative Sodium Potassium Chloride Carbon Dioxide Anion Gap BUN Creatinine Est GFR ( Amer) Est GFR (Non-Af Amer) POC Glucose (mg/dL) 122 H Random Glucose Hemoglobin A1c Calcium Iron TIBC % Saturation Triglycerides Cholesterol LDL Cholesterol Direct HDL Cholesterol Vitamin B12 25-OH Vitamin D Total 72.2 Folate Procalcitonin TSH 3rd Generation Urine Color Urine Appearance Urine pH Ur Specific Reed Urine Protein Urine Glucose (UA) Urine Ketones Urine Blood Urine Nitrate Urine Bilirubin Urine Urobilinogen Ur Leukocyte Esterase Assessment & Plan - Assessment and Plan (Free Text) Assessment: SIRS SOURCE UNCLEAR Attending/Attestation - Attestation I have personally seen and examined this patient.: Yes I have fully participated in the care of the patient.: Yes I have reviewed all pertinent clinical information: Yes
--- NOTE | 2019-02-23 11:39 | CP.PCM.PCO ---
Physician Communication Note - Physician Communication Note Physician Communication Note: Low Iron-elev WBC-erick Miralax qd/No surgery now
[2019-02-23 12:16] LABS: FOLATE 16.5 ng/mL
[2019-02-23 14:03] LABS: URINE BILIRUBIN NEGATIVE (NEGATIVE); URINE BLOOD NEGATIVE (NEGATIVE); URINE GLUCOSE (UA) NEGATIVE (NEGATIVE); URINE LEUKOCYTE ESTERASE NEGATIVE Leu/uL (NEGATIVE); URINE PROTEIN NEGATIVE mg/dL (<30 mg/dL); URINE UROBILINOGEN 0.2 E.U./dL (<1 E.U./dL)
[2019-02-23 14:04] LABS: URINE APPEARANCE CLEAR (CLEAR); URINE COLOR YELLOW (YELLOW)
[2019-02-23] MEDS ORDERED: Levalbuterol 0.63 MG/3 ML Inhal Soln UD IH PRN (14:32)
--- NOTE | 2019-02-23 15:45 | CP.PCM.APN ---
Subjective - Date & Time of Evaluation Date of Evaluation: 02/23/19 Time of Evaluation: 10:00 - Subjective Subjective: Pt seen and examined in bed, denied dizziness, denied weakness, denied chest pain, shortness of breath, palpitations.Does report blood noticeable on underwear. No discolored , bloody bm, or melena. Objective - Vital Signs/Intake and Output Vital Signs (last 24 hours): Temp Pulse Resp BP Pulse Ox 97.5 F L 87 20 117/68 96 02/23/19 06:00 02/23/19 06:00 02/23/19 06:00 02/23/19 06:00 02/23/19 06:00 Intake and Output: 02/23/19 02/23/19 06:59 18:59 Intake Total 350 0 Balance 350 0 - Medications Medications: Current Medications Acetaminophen (Tylenol 325mg Tab) 650 mg PO Q4H PRN PRN Reason: pain fever Apixaban (Eliquis) 2.5 mg PO BID [facility]; Protocol Last Admin: 02/23/19 10:37 Dose: 2.5 mg Aspirin (Ecotrin) 81 mg PO DAILY [facility] Last Admin: 02/23/19 10:37 Dose: 81 mg Famotidine (Pepcid) 40 mg PO HS [facility] Sodium Chloride (Sodium Chloride 0.9%) 1,000 mls @ 60 mls/hr IV .[id number] [facility] Last Admin: 02/23/19 01:08 Dose: 60 mls/hr Metronidazole (Flagyl) 500 mg in 100 mls @ 100 mls/hr IVPB Q8 [facility]; Protocol Cefepime HCl (Maxipime 1gm) 1 gm in 100 mls @ 100 mls/hr IVPB Q12 [facility]; Protocol Insulin Human Regular (Humulin R Low) 0 units SC ACHS [facility]; Protocol Last Admin: 02/23/19 11:46 Dose: Not Given Levalbuterol HCl (Xopenex) 0.63 mg IH [id number] PRN PRN Reason: Shortness of Breath - Labs Labs: 02/23/19 06:30 02/23/19 06:30 PT 15.7 SECONDS (9.4-12.5) H 02/22/19 16:40 INR 1.41 02/22/19 16:40 APTT 30.8 Seconds (26.9-38.3) 02/22/19 16:40 - Constitutional Appears: No Acute Distress - Head Exam Head Exam: NORMOCEPHALIC - Eye Exam Eye Exam: Normal appearance - ENT Exam ENT Exam: Mucous Membranes Moist, Normal Exam - Neck Exam Neck Exam: Full ROM - Respiratory Exam Respiratory Exam: Clear to Ausculation Bilateral - Cardiovascular Exam Cardiovascular Exam: Irregular Rhythm, +S1, +S2 - GI/Abdominal Exam GI & Abdominal Exam: Soft - Rectal Exam Rectal Exam: Deferred - Exam Exam: absent: Circumcision, NORMAL INSPECTION, Scrotal Swelling, Testicular Tenderness, Uretheral Discharge, Testicular Vertical Lie, Bladder Distension External exam: absent: Ecchymosis, Erythema, Lacerations, Lesions, NORMAL EXTERNAL EXAM, Swelling Speculum exam: absent: Cervical Discharge, Erythema, Foreign Body, Laceration, NORMAL SPECULUM EXAM, Tissue, Vaginal Bleeding, Vaginal Discharge Bimanual exam: absent: Adenexal Mass, Adnexal, Cervical Motion Tendernes, NORMAL BIMANUAL EXAM, Uterine Enlargement, Uterine Tenderness - Extremities Exam Extremities Exam: Full ROM - Back Exam Back Exam: NORMAL INSPECTION - Neurological Exam Neurological Exam: Alert, Awake - Psychiatric Exam Psychiatric exam: Normal Affect, Normal Mood - Skin Skin Exam: Dry, Intact Assessment and Plan - Assessment and Plan (Free Text) Assessment: ITS Impressions Chest X-Ray 02/22/19 16:03 IMPRESSION: No active disease. Extremity Ultrasound 02/22/19 16:04 IMPRESSION: No sonographic evidence for deep venous thrombosis in the visualized segments of both lower extremities. Assessment: 84-year-old female with past medical history of atrial fibrillation on anticoagulation Eliquis, rectal prolapse presents to the hospital complaining of weakness and low blood pressure, at physician office, advised by PmD for colette luation. Plan: 1. Hypotension - improved on current IVF, normal BP noted in ED. asymptomatic. 2. Leukocytosis- Work up including blood cx, urine cx pending, Cefepime, flagyl as per I.D. Procal pending. Monitor/trend wbc. 3. Uterine/ rectal prolapse- Recs per surgery,no surgery planned. 4. Non- obstructing renal calculi, 2mm-, with hydronephrosis-- urology consult pending PT eval pending. will continue to monitor clinical status and follow closely
--- NOTE | 2019-02-23 15:55 | CON ---
DATE: 02/23/2019 PULMONARY CONSULTATION NOTE REFERRING PHYSICIAN: Bernadine Arrington MD. REASON FOR CONSULTATION: Shortness of breath and chronic lung disease. HISTORY OF PRESENT ILLNESS: This is an 84-year-old female with past medical history significant for atrial fibrillation, rectal prolapse, uterine prolapse. The patient was brought into the emergency room by her daughter for hypertension, hypotension. Reports that the patient was seen in Dr. Harp's office for evaluation of weakness, as well as low blood pressure for the past 1 to 2 days. It is reported that the patient's blood pressure was in the 70s at Dr. Harp's office. She was sent to the hospital for evaluation. The patient was recently hospitalized for pneumonia, which was treated with antibiotics and antibiotics to be taken at home. Also during recent hospitalization, was noted to have hydronephrosis and hydroureter. At this time, the patient was seen sitting in arm chair in room, is a poor historian. The case was discussed with Dr. Harp. The patient Bruneian speaking, spoke to the patient with a help of Br[place]ian speaking nursing staff. The patient with no complaints of cough, shortness of breath, chest pain, abdominal pain, nausea, vomiting, diarrhea, leg pain, or leg swelling at this time. Dr. Harp does report that while in her office, the patient was having episodes of shortness of breath, and does have diagnosis of COPD. PAST MEDICAL HISTORY: As per history of present illness. FAMILY HISTORY: Unknown family history. SOCIAL HISTORY: Nonsmoker. No EtOH abuse. No illicit drug use. ALLERGIES: NO KNOWN ALLERGIES. REVIEW OF SYSTEMS: No headache, rhinitis, cough, shortness of breath, chest pain, abdominal pain, nausea, vomiting, diarrhea, leg pain, or leg swelling. MEDICATIONS: Reviewed. Tylenol 650 mg every 6 hours p.r.n., Eliquis 2.5 mg twice a day, aspirin 81 mg daily, Rocephin 1 gram daily, Pepcid 40 mg at bedtime, Humatin R sliding scale a.c. and at bedtime, and sodium chloride 1000 mL at 60 mL per hour. PHYSICAL EXAMINATION: GENERAL: No acute distress. VITAL SIGNS: Blood pressure 117/68, pulse 87, temperature 97.5, and oxygen saturation 96% on room air. HEENT: Moist mucous membranes. NECK: Supple. No JVD. RESPIRATORY: Few scattered rhonchi. CARDIOVASCULAR: S1 and S2, irregular. ABDOMEN: Soft and nontender. No distension. EXTREMITIES: No bilateral lower extremity edema. NEUROLOGIC: Awake, alert, verbal, and confused. LABORATORY DATA: Reviewed. WBC 14.8, RBC 4.13, hemoglobin 10.6, hematocrit 34.1, and platelets 441. PT 15.7 and INR 1.41, and APTT 30.8. PO2 35, venous pH 7.36, venous CO2 43, venous HCO3 of 24.3 on FIO2 of 21. Sodium 140, potassium 4.3, chloride 112, carbon dioxide 23, anion gap 9, BUN 28, creatinine 0.9, GFR 60, POC glucose 93, random glucose 88, calcium 8.8, triglycerides 108, cholesterol 84, LDL cholesterol 40, HDL cholesterol 31, vitamin B12 585, folate 16.5, procalcitonin less than 0.05, TSH 3.40, and proBNP 28. Urinalysis unremarkable. Chest x-ray, no active disease. EKG, atrial fibrillation. Extremity ultrasounds, no sonographic evidence for deep venous thrombosis in both lower extremities. IMPRESSION AND PLAN: Chronic obstructive pulmonary disease, episode of hypotension on admission. Recent uterine prolapse, rectal prolapse, atrial fibrillation, anemia, and hydronephrosis. Continue antibiotic therapy. We will order echocardiogram to be done to rule out pulmonary hypertension. We will order cortisol level to be drawn, unsure if the patient was hospitalized for pneumonia was given. She was given steroids. We will draw cortisol level. We will order orthostatic vital signs will be done. Vitamin D level to be drawn. D-dimer to be drawn. We will place the patient on as needed inhaled bronchodilators, fall precautions. Gastric prophylaxis. The patient is currently on anticoagulation therapy. This patient was seen and examined with Dr. Maria. Discussed assessment and plan as described above. This patient was seen and examined with Liudmila Holloway, nurse practitioner. Discussed assessment and plan as described above. Thank you for this consult. We will follow with you. Liudmila Holloway APN Stanley Maria MD [facility] # [id number] [facility]
[2019-02-23] MEDS: metroNIDAZOLE IV 500 mg/100 ml 500 MG/100 ML BAG IVPB SCH ×2 (18:10→21:55)
[2019-02-23] MEDS: Cefepime 1gm in NS 100ml 1 GM/100 ML BAG IVPB SCH (21:55)
--- NOTE | 2019-02-24 01:58 | HP ---
DATE OF EXAM: 02/23/2019 The patient was seen and examined at the bedside 02/23/2019. CHIEF COMPLAINT: Dizziness, headache, and low blood pressure. HISTORY OF PRESENT ILLNESS: Ms. Carisa Rosa is an 84-year-old lady with history of atrial fibrillation, on Eliquis. She has history of pneumonia, got treatment recently from [facility], [place] and was discharged home with p.o. antibiotics, just finished antibiotics, came in my office on 02/22/2019 with her daughter with headache and dizziness. Blood pressure was very low. Looks little bit fatigue and lethargic. I sent her to [facility]. Her systolic blood pressure was in the 70s. CAT scan done in [facility] [place] recently shows hydronephrosis and hydroureter. The patient has a history of rectal prolapse, urethral prolapse, feeling chills, and feverish. Daughter was sitting on the bedside. We admitted the patient, started Rocephin IV, call consult with ID, Urology and Surgery will follow up. IV fluids given. After IV fluids, the patient improved. White blood cells improved. PAST MEDICAL HISTORY: Atrial fibrillation, hypertension, COPD, emphysema, hard of hearing, diabetes mellitus type 2, and rectal prolapse. The patient has a history of vaginal prolapse, got pessary from CHEMISTRY LAB INSTRUCTOR and now again having problem. FAMILY HISTORY: Father and mother noncompliance. HABITS: Never smoked. No drugs. No ethanol. ALLERGIES: THE PATIENT IS NOT ALLERGIC WITH ANY MEDICATIONS. REVIEW OF SYSTEMS: The patient was seen and examined at the bedside today in the morning in the presence of hospital nurse practitioner, Dr. Crow Ragland's nurse practitioner, and the patient's nurse. Feeling little bit better. Sitting on the chair. Chills are better. Still sometime coughing and shortness of breath. No headache. No dizziness. No hematuria. No hematochezia. No diarrhea. No constipation. PHYSICAL EXAMINATION: VITAL SIGNS: Temperature 97.9, pulse 122, blood pressure 123/63, and respiratory rate 18. HEENT: Head is normocephalic and atraumatic. Eyes; PERRLA. Extraocular muscles intact. Conjunctivae clear. Nose patent. Mucous membranes moist. NECK: Supple. No carotid bruits, JVD, or thyromegaly. CHEST: Bilaterally symmetrical. HEART: S1 and S2 positive. LUNGS: Clear to auscultation. ABDOMEN: Soft. Bowel sounds present. No organomegaly. EXTREMITIES: No edema. No cyanosis. NEUROLOGIC: The patient is awake and alert, but confused, not at the baseline. Moving all four extremities. LABORATORY DATA: White blood cell on admission was 16.4 after dose of Rocephin is 14.8, hemoglobin 10.6, hematocrit 34.1, platelets 441, and glucose 122. Sodium 140, potassium 4.2, BUN 28, and creatinine 0.9. ASSESSMENT AND PLAN: Ms. Carisa Rosa is an 84-year-old lady with leukocytosis, anemia, hyperchloremia, hyperglycemia, came with hypotension, rule out septic shock, history of atrial fibrillation, on Eliquis, rectal prolapse, is admitted with hypotension and leukocytosis is improving. Uterine/rectal prolapse. Nonobstructive renal calculi with hydronephrosis. Urology consult called, results are still pending. Chronic obstructive pulmonary disease, asthma. Seen by the inside account executive. CHEMISTRY LAB INSTRUCTOR visit recently. ID is on the case. Continue antibiotics. Reviewed Dr. Reyes's notes. The patient was started on Rocephin, We will start on cefepime on Flagyl. Follow up septic workup. ultrasound shows no DVTs. Repeat labs. We will follow up. Bernadine Arrington MD [facility]AL
[2019-02-24] MEDS: metroNIDAZOLE IV 500 mg/100 ml 500 MG/100 ML BAG IVPB SCH ×3 (05:50→21:23)
[2019-02-24 06:59] LABS: HEMOGLOBIN 10.6 g/dL (12.0-16.0); MEAN CELL VOLUME 82.9 fl (80.0-105.0); MEAN CORPUSCULAR HEMOGLOBIN 25.9 pg (25.0-35.0); MEAN CORPUSCULAR HGB CONC 31.3 g/dl (31.0-37.0); MEAN PLATELET VOLUME 8.5 fl (7.0-11.0); RBC 4.09 10^6/uL (3.5-6.1); RED CELL DISTRIBUTION WIDTH 16.6 % (11.5-14.5); WHITE BLOOD COUNT 13.5 10^3/uL (4.5-11.0)
[2019-02-24 07:23] LABS: LDL CHOLESTEROL 43 mg/dL (0-129)
[2019-02-24 07:25] LABS: TOTAL IRON BINDING CAPACITY 314 ug/dL (265-497)
[2019-02-24 07:29] LABS: ALBUMIN 2.9 g/dL (3.0-4.8); ALT/SGPT 26 U/L (7-56); AST/SGOT 21 U/L (14-36); BLOOD UREA NITROGEN 23 mg/dL (7-21); CALCIUM 8.5 mg/dL (8.4-10.5); GFR NON-AFRICAN AMERICAN > 60; HDL CHOLESTEROL 32 mg/dL (29-60)
[2019-02-24 07:30] LABS: % IRON SATURATION 87 % (20-55); IRON 274 ug/dL (45-180)
[2019-02-24] MEDS: Insulin Reg-LOW-Coverage SC SCH ×4 (07:30→21:24)
--- NOTE | 2019-02-24 07:56 | CP.PCM.PN ---
<Daniel Cooper - Last Filed: 02/24/19 13:48> Subjective - Date & Time of Evaluation Date of Evaluation: 02/24/19 Time of Evaluation: 10:00 - Subjective Subjective: Infectious dx progress note: Pt seen and examined at bedside. No acute events overnight. No complaints at this time. 12 Point ROS performed and neg other than stated above Objective - Vital Signs/Intake and Output Vital Signs (last 24 hours): Temp Pulse Resp BP Pulse Ox 98.4 F 98 H 18 124/76 97 02/23/19 22:00 02/24/19 06:00 02/23/19 22:00 02/23/19 22:00 02/23/19 22:00 Intake and Output: 02/24/19 02/24/19 06:59 18:59 Intake Total 700 120 Output Total 400 Balance 300 120 - Medications Medications: Current Medications Acetaminophen (Tylenol 325mg Tab) 650 mg PO Q4H PRN PRN Reason: pain fever Apixaban (Eliquis) 2.[address] [facility]; Protocol Last Admin: 02/23/19 18:10 Dose: 2.5 mg Aspirin (Ecotrin) 81 mg PO DAILY [facility] Last Admin: 02/23/19 10:37 Dose: 81 mg Famotidine (Pepcid) [address] [facility] Last Admin: 02/23/19 21:55 Dose: 40 mg Sodium Chloride (Sodium Chloride 0.9%) 1,000 mls @ 60 mls/hr IV .[id number] [facility] Last Admin: 02/23/19 21:55 Dose: 60 mls/hr Metronidazole (Flagyl) 500 mg in 100 mls @ 100 mls/hr IVPB Q8 [facility]; Protocol Last Admin: 02/24/19 05:50 Dose: 100 mls/hr Cefepime HCl (Maxipime 1gm) 1 gm in 100 mls @ 100 mls/hr IVPB Q12 [facility]; Protocol Last Admin: 02/23/19 21:55 Dose: 100 mls/hr Insulin Human Regular (Humulin R Low) 0 units SC ACHS [facility]; Protocol Last Admin: 02/23/19 21:28 Dose: Not Given Levalbuterol HCl (Xopenex) 0.63 mg IH [id number] PRN PRN Reason: Shortness of Breath - Labs Labs: 02/24/19 06:30 02/24/19 06:30 PT 15.7 SECONDS (9.4-12.5) H 02/22/19 16:40 INR 1.41 02/22/19 16:40 APTT 30.8 Seconds (26.9-38.3) 02/22/19 16:40 - Constitutional Appears: No Acute Distress - Eye Exam Eye Exam: EOMI - ENT Exam ENT Exam: Mucous Membranes Moist - Respiratory Exam Respiratory Exam: Clear to Ausculation Bilateral. absent: Wheezes - Cardiovascular Exam Cardiovascular Exam: REGULAR RHYTHM, +S1, +S2 - GI/Abdominal Exam GI & Abdominal Exam: Soft. absent: Distended, Tenderness - Extremities Exam Extremities Exam: absent: Calf Tenderness, Pedal Edema - Neurological Exam Neurological Exam: Oriented x3 - Psychiatric Exam Psychiatric exam: Normal Mood - Skin Skin Exam: Dry, Warm Assessment and Plan - Assessment and Plan (Free Text) Assessment: Sirs of unknown etiology Atrial fibrillation on anticoagulation Rectal/ uterus prolapse Anemia hydronephrosis Cont on cefepime and flagyl day 2 F/u CT of the abd Follow-up septic work-up, urinalysis has been negative Chest x-ray shows no active disease f/u echo Extremity ultrasound shows no DVTs Follow-up surgery consult and recommendations Follow-up urology consult for nephrolithiasis? hydronephrosis Follow-up pulmonary consult for shortness of breath Continue to monitor for any changes Case and plan to be reviewed and discussed with Dr. Reyes <Shawn Reyes - Last Filed: 02/24/19 22:08> Objective - Vital Signs/Intake and Output Vital Signs (last 24 hours): Temp Pulse Resp BP Pulse Ox 97.2 F L 130 H 18 110/70 98 02/24/19 17:20 02/24/19 18:06 02/24/19 17:20 02/24/19 18:06 02/24/19 17:20 Intake and Output: 02/24/19 02/25/19 18:59 06:59 Intake Total 120 840 Balance 120 840 - Medications Medications: Current Medications Acetaminophen (Tylenol 325mg Tab) 650 mg PO Q4H PRN PRN Reason: pain fever Apixaban (Eliquis) 2.[address] [facility]; Protocol Last Admin: 02/24/19 18:07 Dose: 2.5 mg Aspirin (Ecotrin) [address] [facility] Last Admin: 02/24/19 10:27 Dose: 81 mg Famotidine (Pepcid) [address] [facility] Last Admin: 02/24/19 21:23 Dose: 40 mg Metronidazole (Flagyl) 500 mg in 100 mls @ 100 mls/hr IVPB Q8 [facility]; Protocol Last Admin: 02/24/19 21:23 Dose: 100 mls/hr Cefepime HCl (Maxipime 1gm) 1 gm in 100 mls @ 100 mls/hr IVPB Q12 [facility]; Protocol Last Admin: 02/24/19 21:23 Dose: 100 mls/hr Insulin Human Regular (Humulin R Low) [address] [facility]; Protocol Last Admin: 02/24/19 21:24 Dose: Not Given Levalbuterol HCl (Xopenex) 0.63 mg IH [id number] PRN PRN Reason: Shortness of Breath Polyethylene Glycol (Miralax) [address] [facility] Last Admin: 02/24/19 10:28 Dose: 17 gm - Labs Labs: 02/24/19 06:30 02/24/19 06:30 PT 15.7 SECONDS (9.4-12.5) H 02/22/19 16:40 INR 1.41 02/22/19 16:40 APTT 30.8 Seconds (26.9-38.3) 02/22/19 16:40 Attending/Attestation - Attestation I have personally seen and examined this patient.: Yes I have fully participated in the care of the patient.: Yes I have reviewed all pertinent clinical information, including history, physical exam and plan: Yes
[2019-02-24] MEDS: Cefepime 1gm in NS 100ml 1 GM/100 ML BAG IVPB SCH ×2 (10:28→21:23)
[2019-02-24] MEDS: POLYETHYLENE GLYCOL 3350 17 GM/Dose PACKET PO SCH (10:28)
--- NOTE | 2019-02-24 10:57 | PCM.URO ---
Urology Progress Note - Objective Lab Studies: Reviewed (full note dictated #[id number] from gu standpoint , pt clear for discharge) Lab Results Last 24 Hours: Laboratory Results - last 24 hr 02/23/19 02/23/19 02/23/19 06:30 06:30 07:30 WBC RBC Hgb Hct MCV MCH MCHC RDW Plt Count MPV D-Dimer, Quantitative Sodium Potassium Chloride Carbon Dioxide Anion Gap BUN Creatinine Est GFR ( Amer) Est GFR (Non-Af Amer) POC Glucose (mg/dL) Random Glucose Hemoglobin A1c 6.3 Calcium Iron TIBC % Saturation Total Bilirubin AST ALT Alkaline Phosphatase Total Protein Albumin Globulin Albumin/Globulin Ratio Triglycerides Cholesterol LDL Cholesterol Direct HDL Cholesterol Vitamin B12 585 25-OH Vitamin D Total Folate 16.5 Procalcitonin < 0.05 L TSH 3rd Generation Urine Color Urine Appearance Urine pH Ur Specific [place] Urine Protein Urine Glucose (UA) Urine Ketones Urine Blood Urine Nitrate Urine Bilirubin Urine Urobilinogen Ur Leukocyte Esterase 02/23/19 02/23/19 02/23/19 11:30 13:45 16:09 WBC RBC Hgb Hct MCV MCH MCHC RDW Plt Count MPV D-Dimer, Quantitative Sodium Potassium Chloride Carbon Dioxide Anion Gap BUN Creatinine Est GFR ( Amer) Est GFR (Non-Af Amer) POC Glucose (mg/dL) 116 H 106 Random Glucose Hemoglobin A1c Calcium Iron TIBC % Saturation Total Bilirubin AST ALT Alkaline Phosphatase Total Protein Albumin Globulin Albumin/Globulin Ratio Triglycerides Cholesterol LDL Cholesterol Direct HDL Cholesterol Vitamin B12 25-OH Vitamin D Total Folate Procalcitonin TSH 3rd Generation Urine Color Yellow Urine Appearance Clear Urine pH 7.0 Ur Specific [place] 1.015 Urine Protein Negative Urine Glucose (UA) Negative Urine Ketones Negative Urine Blood Negative Urine Nitrate Negative Urine Bilirubin Negative Urine Urobilinogen 0.2 Ur Leukocyte Esterase Negative 02/23/19 02/23/19 02/23/19 17:13 17:13 21:27 WBC RBC Hgb Hct MCV MCH MCHC RDW Plt Count MPV D-Dimer, Quantitative 279 H Sodium Potassium Chloride Carbon Dioxide Anion Gap BUN Creatinine Est GFR ( Amer) Est GFR (Non-Af Amer) POC Glucose (mg/dL) 122 H Random Glucose Hemoglobin A1c Calcium Iron TIBC % Saturation Total Bilirubin AST ALT Alkaline Phosphatase Total Protein Albumin Globulin Albumin/Globulin Ratio Triglycerides Cholesterol LDL Cholesterol Direct HDL Cholesterol Vitamin B12 25-OH Vitamin D Total 72.2 Folate Procalcitonin TSH 3rd Generation Urine Color Urine Appearance Urine pH Ur Specific [place] Urine Protein Urine Glucose (UA) Urine Ketones Urine Blood Urine Nitrate Urine Bilirubin Urine Urobilinogen Ur Leukocyte Esterase 02/24/19 02/24/19 02/24/19 06:30 06:30 06:30 WBC 13.5 H RBC 4.09 Hgb 10.6 L Hct 33.9 L MCV 82.9 MCH 25.9 MCHC 31.3 RDW 16.6 H Plt Count 393 MPV 8.5 D-Dimer, Quantitative Sodium 140 Potassium 4.3 Chloride 113 H Carbon Dioxide 19 L Anion Gap 13 BUN 23 H Creatinine 0.7 Est GFR ( Amer) > 60 Est GFR (Non-Af Amer) > 60 POC Glucose (mg/dL) Random Glucose 88 Hemoglobin A1c Calcium 8.5 Iron 274 H TIBC 314 % Saturation 87 H Total Bilirubin 0.2 AST 21 ALT 26 Alkaline Phosphatase 49 Total Protein 5.8 Albumin 2.9 L Globulin 2.9 Albumin/Globulin Ratio 1.0 L Triglycerides 75 Cholesterol 83 L LDL Cholesterol Direct 43 HDL Cholesterol 32 Vitamin B12 25-OH Vitamin D Total Folate Procalcitonin TSH 3rd Generation Urine Color Urine Appearance Urine pH Ur Specific [place] Urine Protein Urine Glucose (UA) Urine Ketones Urine Blood Urine Nitrate Urine Bilirubin Urine Urobilinogen Ur Leukocyte Esterase 02/24/19 02/24/19 06:30 07:47 WBC RBC Hgb Hct MCV MCH MCHC RDW Plt Count MPV D-Dimer, Quantitative Sodium Potassium Chloride Carbon Dioxide Anion Gap BUN Creatinine Est GFR ( Amer) Est GFR (Non-Af Amer) POC Glucose (mg/dL) 94 Random Glucose Hemoglobin A1c Calcium Iron TIBC % Saturation Total Bilirubin AST ALT Alkaline Phosphatase Total Protein Albumin Globulin Albumin/Globulin Ratio Triglycerides Cholesterol LDL Cholesterol Direct HDL Cholesterol Vitamin B12 25-OH Vitamin D Total Folate Procalcitonin TSH 3rd Generation 5.23 H Urine Color Urine Appearance Urine pH Ur Specific [place] Urine Protein Urine Glucose (UA) Urine Ketones Urine Blood Urine Nitrate Urine Bilirubin Urine Urobilinogen Ur Leukocyte Esterase Intake & Output: Intake & Output 02/23/19 02/24/19 02/24/19 18:59 06:59 18:59 Intake Total 0 700 120 Output Total 400 Balance 0 300 120 Intake: Oral 0 700 120 Output: Urine 400 Urine, Voided 400 Other: # Voids Urine, Voided 0 3 1 # Bowel Movements 3 1 Vital Signs: Vital Signs - 24 hr 02/23/19 02/23/19 02/23/19 14:00 16:27 18:00 Temperature 97.9 F Pulse Rate 96 H 96 H 122 H Respiratory 18 Rate Blood Pressure 123/63 O2 Sat by Pulse 98 Oximetry 02/23/19 02/24/19 02/24/19 22:00 02:00 06:00 Temperature 98.4 F Pulse Rate 85 98 H 98 H Respiratory 18 Rate Blood Pressure 124/76 O2 Sat by Pulse 97 Oximetry 02/24/19 08:29 Temperature 98.8 F Pulse Rate 109 H Respiratory 20 Rate Blood Pressure 120/69 O2 Sat by Pulse 98 Oximetry
[2019-02-24] MEDS ORDERED: Iodixanol 320 MG/ML 100 ML BOTTLE IV ONE (11:50)
--- NOTE | 2019-02-24 12:05 | CP.PCM.PCO ---
Additional Comments - Additional Comments Additional Comments: Hypotension Improved on IVF- check orthostatic vital signs. Leukocytosis improving, on current anibx,- blood cx so far neg. awaiting ID rec reg antibiotics. Uterine/Rectal prolapse- per Dr. Lombardi, surgery not needed at this time, rec. miralax, ordered.Per urologist no further workup planned for renal calculi/hydronephrosis. Prior episode of shortness of breath, w. hx pulmonary htn- Echo completed for eval result pending. Elevated D-Dimer- CT Angio pending Pt. rec. TCU, TCU eval pending. cont. to monitor clinical status, orthostatic v/s, follow up results of CT scan, echo.
--- NOTE | 2019-02-24 12:41 | PN ---
DATE: 02/24/2019 REFERRING PHYSICIAN: Dr. Bernadine Arrington. SUBJECTIVE: The patient is seen in room sitting on the chair. No acute distress. No overnight events reported. Had echocardiogram done this morning. No headache, rhinitis, cough, shortness of breath, chest pain, abdominal pain, nausea, vomiting, diarrhea, leg pain or leg swelling reported. OBJECTIVE: VITAL SIGNS: Blood pressure 120/69, pulse 109, temperature 98.8, oxygen saturation 98% on room air. GENERAL: No acute distress. HEENT: Moist mucous membranes. NECK: Supple. No JVD. RESPIRATORY: Fair airflow bilaterally. CARDIOVASCULAR: S1, S2 regular. ABDOMEN: Soft, nontender. No distension. EXTREMITIES: No bilateral lower extremity edema. NEUROLOGIC: Awake, alert, and verbal. MEDICATIONS: Reviewed. Tylenol 650 mg every 4 hours p.r.n., Eliquis 2.5 mg twice a day, aspirin 81 mg daily, cefepime 1 g every 12 hours, Pepcid 40 mg at bedtime, Humulin R sliding scale before meals and at bedtime, Xopenex 0.63 mg inhalation every 6 hour p.r.n., Pletal 500 mg every 8 hours, MiraLax 17 g daily, sodium chloride 0.9% at 60 mL/hour. LABORATORY DATA: Reviewed. WBC 13.5, RBC 4.09, hemoglobin 10.6, hematocrit 33.9, platelets 393. D-dimer 279. Sodium 140, potassium 4.3, chloride 130, carbon dioxide 19, anion gap 13, BUN 23, creatinine 0.7, GFR greater than 60, POC glucose 94, random glucose 88, calcium 8.5, iron 274, TIBC 314, percent saturation 87. Total bilirubin 0.2, AST 21, ALT 26, alkaline phosphatase 49, total protein 5.8, albumin 2.9, globulin 2.9, albumin-globulin ratio 1, triglyceride 75. Cholesterol 83, LDL cholesterol 43, HDL cholesterol 32. TSH 5.23. Procalcitonin less than 0.05. Blood cultures preliminary, no growth after 24 hours. Echocardiogram report pending. IMPRESSION AND PLAN: Chronic obstructive pulmonary disease, hypotension, uterine prolapse, rectal prolapse, atrial fibrillation, anemia, hydronephrosis. The patient is on antibiotic therapy. Echocardiogram report pending. We will follow up when available. Cortisol level pending, we will follow up when available. Due to D-dimer being positive, we will do CTA to rule out embolism. Continue as needed inhaled bronchodilators. Fall precautions. Gastric prophylaxis. The patient is currently on anticoagulation therapy. The patient was seen and examined by Dr. Maria. Discussed assessment and plan as described above. The patient was seen and examined by Liudmila Holloway, nurse practitioner. Discussed assessment and plan as described above. Thank you for this consult. We will follow with you. Liudmila Holloway APN Stanley Maria MD
[2019-02-24 13:19] LABS: FOLATE 14.2 ng/mL
--- NOTE | 2019-02-24 13:33 | CT ---
Date of service: 02/24/2019 PROCEDURE: CT Chest with contrast (Pulmonary Angiogram) HISTORY: ELEVATED D-DIMER COMPARISON: None available. TECHNIQUE: Axial computed tomography images were obtained of the chest in the pulmonary arterial phase of enhancement. Coronal and sagittal reformatted images were created and reviewed. Intravenous contrast dose: 100 cc of Visipaque Radiation dose: Total exam DLP = 304.06 mGy-cm. This CT exam was performed using one or more of the following dose reduction techniques: Automated exposure control, adjustment of the mA and/or kV according to patient size, and/or use of iterative reconstruction technique. FINDINGS: PULMONARY ARTERIES: Unremarkable. No pulmonary embolism. 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 Aortic calcification. LUNGS: There bronchiectasis in the right lower lobe. There is soft tissue opacification of several lower lobe bronchi. PLEURAL SPACES: Unremarkable. No effusion or pneumothorax. HEART: Unremarkable. No cardiomegaly. No significant pericardial effusion. LYMPH NODES: Calcified hilar and mediastinal lymph nodes BONES, CHEST WALL: Unremarkable. No fracture or destructive lesion OTHER FINDINGS: Unremarkable. IMPRESSION: No evidence of pulmonary embolus. Bronchiectasis in the right lower lobe
[2019-02-24] MEDS ORDERED: Sodium Chloride 0.9% 1,000 ML IV SCH (13:49)
[2019-02-24] MEDS ORDERED: Barium Sulfate Susp 2.1% w/v, 2.0% w/w 450 mL Bottle PO ONE (13:58)
[2019-02-24] MEDS ORDERED: Digoxin 500 mcg/2ml (0.5 mg/2ml) Inj IVP ONE (13:58)
[2019-02-24] MEDS ORDERED: Sodium Chloride 0.9% 500 ML IV STA (14:00)
--- NOTE | 2019-02-24 14:18 | CP.PCM.PN ---
Subjective - Date & Time of Evaluation Date of Evaluation: 02/24/19 Time of Evaluation: 14:06 - Subjective Subjective: Susi Love DO, PGY-2: House Doctor response to patient with atrial fibrillation with rapid ventricular rate 84 year old female with history of atrial fibrillation on Eliquis (currently not on any rate control likely given her hypotension) admitted for weakness and hypotension. The nursed called and asked for me to evaluate for "atrial fibrillation with a RVR. Blood presure was 90/60 manually and HR was 130. EKG was performed that showed atrial flutter with variable AV block. Patient was asymptomatic at the time of my evaluation. On exam, she had no crackles. I called the echocardiogram department to get a preliminary interpretation of the patient's Ejection Fraction, which was reported to be 50- 55% by the photographic reproduction technician. Though the patient has no overt symptoms of HF and a relatively normal EF, in light of her hypotension and atrial fibrillation with RVR, I ordered for a 500 ml bolus of NS and 0.250 mg of Digoxin at 14:10. I discussed with the nurse that I have ordered for the other 0.125 IVP of the digoxin at 20:00 and the final digoxin 0.125 IVP for 05:00 tomorrow to complete rapid digitalizing dose for atrial fibrillation. Lastly, I increased the patient's maintainence fluid to 150 mls/hr for one bag. I requested that the nurse alert the house doctor if the patient's condition worsens or if she develops any symptoms. I recommend restarting the patient's PO Diltiazem as early as possible, and maintaining her blood pressure with fluids. Objective - Vital Signs/Intake and Output Vital Signs (last 24 hours): Temp Pulse Resp BP Pulse Ox 98.8 F 109 H 20 120/69 98 02/24/19 08:29 02/24/19 08:29 02/24/19 08:29 02/24/19 08:29 02/24/19 08:29 Intake and Output: 02/24/19 02/24/19 06:59 18:59 Intake Total 700 120 Output Total 400 Balance 300 120 - Medications Medications: Current Medications Acetaminophen (Tylenol 325mg Tab) 650 mg PO Q4H PRN PRN Reason: pain fever Apixaban (Eliquis) 2.5 mg PO BID [facility]; Protocol Last Admin: 02/24/19 10:27 Dose: 2.5 mg Aspirin (Ecotrin) 81 mg PO DAILY [facility] Last Admin: 02/24/19 10:27 Dose: 81 mg Famotidine (Pepcid) 40 mg PO HS [facility] Last Admin: 02/23/19 21:55 Dose: 40 mg Metronidazole (Flagyl) 500 mg in 100 mls @ 100 mls/hr IVPB Q8 [facility]; Protocol Last Admin: 02/24/19 13:26 Dose: 100 mls/hr Cefepime HCl (Maxipime 1gm) 1 gm in 100 mls @ 100 mls/hr IVPB Q12 [facility]; Protocol Last Admin: 02/24/19 10:28 Dose: 100 mls/hr Sodium Chloride (Sodium Chloride 0.9%) 1,000 mls @ 150 mls/hr IV .Q6H40M [facility] Sodium Chloride (Sodium Chloride 0.9%) 500 mls @ 999 mls/hr IV .Q31M STA Stop: 02/24/19 14:30 Insulin Human Regular (Humulin R Low) 0 units SC ACHS [facility]; Protocol Last Admin: 02/24/19 13:25 Dose: 3 units Levalbuterol HCl (Xopenex) 0.63 mg IH [id number] PRN PRN Reason: Shortness of Breath Polyethylene Glycol (Miralax) 17 gm PO DAILY [facility] Last Admin: 02/24/19 10:28 Dose: 17 gm - Labs Labs: 02/24/19 06:30 02/24/19 06:30 PT 15.7 SECONDS (9.4-12.5) H 02/22/19 16:40 INR 1.41 02/22/19 16:40 APTT 30.8 Seconds (26.9-38.3) 02/22/19 16:40
--- NOTE | 2019-02-24 18:44 | CARD ---
APPROVED REPORT Date of service: 02/24/2019 EKG Measurement Heart [id number] <Conclusion> Atrial flutter with variable AV block Low voltage QRS Abnormal ECG
--- NOTE | 2019-02-24 19:16 | PN ---
This case has been discussed with Dr. Arrington she is inagreement with treatment plan. DATE: 02/24/2019 SUBJECTIVE: This is an 84-year-old female with multiple medical problems. The patient was last admitted in [facility] for pneumonia. She was recently discharged. Now, she came back to [facility] with hypotension and leukocytosis. The patient has a history of hypertension, COPD, hyperlipidemia, rectal and uterine prolapse. I saw the patient today at the bedside. She was alert. Daughter at the bedside as well. The patient denies chest pain, shortness of breath, palpitations, hematuria, hematochezia, fevers, or chills. PHYSICAL EXAMINATION: VITAL SIGNS: Temperature 98.8, blood pressure 120/59, pulse is 86, respiratory rate 20, 98 on room air. GENERAL: The patient looks chronically ill. HEENT: Normocephalic, atraumatic. PERRLA. Mucous membranes moist. NECK: Supple. No thyromegaly. RESPIRATORY: Clear to auscultation. No heaves. No rhonchi. CARDIOVASCULAR: S1, S2. No JVD. No edema. ABDOMEN: Soft, distended, positive bowel sounds. No organomegaly. EXTREMITIES: The patient moving all extremities. NEUROLOGIC: Alert and oriented x3. MEDICATIONS: The patient continues on Tylenol 325, Eliquis 2.5, Ecotrin, Maxipime. The patient is on digoxin and Pepcid, Accu-Chek before meals and at bedtime, Humulin insulin coverage, Flagyl, MiraLax. LABORATORY DATA: Today, 02/24/2019, white blood cell 13.5, hemoglobin 10.6, hematocrit 33.9, platelet count 393. Sodium 140, potassium 4.3, chloride 113, BUN of 23, creatinine 0.7, GFR of 60. ASSESSMENT AND PLAN: Ms. Carisa Rosa is an 84-year-old female with multiple medical comorbidities, was discharged from [facility] recently, now here at [facility], came in for hypotension, leukocytosis. Reviewed Cardiology notes, the patient also diagnosed with atrial fibrillation, atrial flutter. She was started on digoxin per Cardiology 0.125 intravenous piggyback. She is also continued intravenous antibiotics. Reviewed blood cultures from the past24 hours. Urinalysis was negative. Infectious Disease is on the case. Pulmonology is on the case reviewed notes thank you for input. We will review CT angiography results for elevated D- dimer. We will f/u and plan accordingly. ALL ABOVE NOTED AGREED WITH N[ TREATMENT PLAN , D/D WILL F/U Nico Cuellar APN Bernadine Arrington MD [facility]
--- NOTE | 2019-02-24 19:53 | CON ---
DATE: 02/23/2019 UROLOGY CONSULTATION REASON FOR CONSULTATION: A stone and urinary tract infection. The patient is admitted under the care of Dr. Harp. HISTORY OF PRESENT ILLNESS: The patient is a pleasant 84-year-old lady. She is currently under the care of Dr. Harp. REVIEW OF SYSTEMS: Listed above. Noncontributory. SOCIAL HISTORY: As listed. MEDICATIONS: See the chart. ALLERGIES: ALL OF THIS IS LISTED IN THE CHART. PHYSICAL EXAMINATION: GENERAL: A well-nourished female, she is currently resting comfortably in her bed. VITAL SIGNS: Noted. PELVIC: Deferred. LABORATORY DATA: Labs and CT are all noted. DIAGNOSES: Urinary tract infection, urolithiasis. From a Urology stand point, she is a very pleasant 84-year-old lady. We are going to have the patient come to the office as an outpatient. There is no acute treatment needed now. She is not having any flank pain. We are going to pay attention to the noted hydronephrosis. We will have to define the causes, but right now, she is not complaining of any pain. Further plans will follow. Thank you for the Urology consult. Santiago Price MD
[2019-02-24] MEDS ORDERED: Digoxin 500 mcg/2ml (0.5 mg/2ml) Inj IVP SCH (20:00)
[2019-02-25] MEDS ORDERED: Digoxin 500 mcg/2ml (0.5 mg/2ml) Inj IVP ONE (05:00)
[2019-02-25] MEDS: metroNIDAZOLE IV 500 mg/100 ml 500 MG/100 ML BAG IVPB SCH ×2 (05:46→14:48)
--- NOTE | 2019-02-25 07:46 | CP.PCM.PN ---
<Daniel Cooper - Last Filed: 02/25/19 15:19> Subjective - Date & Time of Evaluation Date of Evaluation: 02/25/19 Time of Evaluation: 10:00 - Subjective Subjective: Infectious disease progress note: Patient seen and examined at bedside. No acute events overnight. No complains at this time. NO fevers. 12 point ROS performed and negative unless stated above. Objective - Vital Signs/Intake and Output Vital Signs (last 24 hours): Temp Pulse Resp BP Pulse Ox 97.2 F L 88 18 110/70 98 02/24/19 17:20 02/25/19 06:00 02/24/19 17:20 02/24/19 18:06 02/24/19 17:20 Intake and Output: 02/25/19 02/25/19 06:59 18:59 Intake Total 840 Output Total 200 Balance 640 - Medications Medications: Current Medications Acetaminophen (Tylenol 325mg Tab) 650 mg PO Q4H PRN PRN Reason: pain fever Apixaban (Eliquis) 2.5 mg PO BID [facility]; Protocol Last Admin: 02/24/19 18:07 Dose: 2.5 mg Aspirin (Ecotrin) 81 mg PO DAILY [facility] Last Admin: 02/24/19 10:27 Dose: 81 mg Famotidine (Pepcid) 40 mg PO HS [facility] Last Admin: 02/24/19 21:23 Dose: 40 mg Metronidazole (Flagyl) 500 mg in 100 mls @ 100 mls/hr IVPB Q8 [facility]; Protocol Last Admin: 02/25/19 05:46 Dose: 100 mls/hr Cefepime HCl (Maxipime 1gm) 1 gm in 100 mls @ 100 mls/hr IVPB Q12 [facility]; Protocol Last Admin: 02/24/19 21:23 Dose: 100 mls/hr Insulin Human Regular (Humulin R Low) 0 units SC ACHS [facility]; Protocol Last Admin: 02/24/19 21:24 Dose: Not Given Levalbuterol HCl (Xopenex) 0.63 mg IH [id number] PRN PRN Reason: Shortness of Breath Polyethylene Glycol (Miralax) 17 gm PO DAILY [facility] Last Admin: 02/24/19 10:28 Dose: 17 gm - Labs Labs: 02/24/19 06:30 02/24/19 06:30 PT 15.7 SECONDS (9.4-12.5) H 02/22/19 16:40 INR 1.41 02/22/19 16:40 APTT 30.8 Seconds (26.9-38.3) 02/22/19 16:40 - Eye Exam Eye Exam: EOMI - Respiratory Exam Respiratory Exam: Clear to Ausculation Bilateral. absent: Rales, Wheezes - Cardiovascular Exam Cardiovascular Exam: Tachycardia, REGULAR RHYTHM, +S1, +S2 - GI/Abdominal Exam GI & Abdominal Exam: Soft. absent: Tenderness - Extremities Exam Extremities Exam: absent: Calf Tenderness - Neurological Exam Neurological Exam: Alert, Awake - Skin Skin Exam: Dry, Warm Assessment and Plan - Assessment and Plan (Free Text) Assessment: Sirs of unknown etiology Atrial fibrillation on anticoagulation Rectal/ uterus prolapse Anemia hydronephrosis D/chani cefepime and flagyl day 3. Started on Augmentin 875mg PO BID for 5 days. F/u CT of the abd CT chest showed R sided bronchiectasis Follow-up septic work-up, urinalysis has been negative Chest x-ray shows no active disease f/u echo report Follow-up surgery consult and recommendations Follow-up urology consult for nephrolithiasis? hydronephrosis Follow-up pulmonary consult for shortness of breath Continue to monitor for any changes Case and plan to be reviewed and discussed with Dr. Reyes <Shawn Reyes - Last Filed: 02/25/19 22:44> Objective - Vital Signs/Intake and Output Vital Signs (last 24 hours): Temp Pulse Resp BP Pulse Ox 98 F 123 H 18 117/55 L 99 02/25/19 15:56 02/25/19 18:55 02/25/19 15:56 02/25/19 18:55 02/25/19 15:56 Intake and Output: 02/25/19 02/26/19 18:59 06:59 Intake Total 1060 Balance 1060 - Medications Medications: Current Medications Acetaminophen (Tylenol 325mg Tab) 650 mg PO Q4H PRN PRN Reason: pain fever Amoxicillin/Clavulanate Potassium (Augmentin 875 Mg-125 Mg Tab) 1 tab PO Q12 [facility]; Protocol Stop: 03/02/19 22:01 Last Admin: 02/25/19 21:45 Dose: 1 tab Apixaban (Eliquis) 2.5 mg PO BID [facility]; Protocol Last Admin: 02/25/19 18:55 Dose: 2.5 mg Aspirin (Ecotrin) 81 mg PO DAILY [facility] Last Admin: 02/25/19 10:04 Dose: 81 mg Budesonide (Pulmicort Respules) 0.5 mg IH Q8H [facility] Last Admin: 02/25/19 19:37 Dose: 0.5 mg Famotidine (Pepcid) 40 mg PO HS [facility] Last Admin: 02/24/19 21:23 Dose: 40 mg Sodium Chloride (Sodium Chloride 0.9%) 1,000 mls @ 100 mls/hr IV .Q10H [facility] Insulin Human Regular (Humulin R Low) 0 units SC ACHS [facility]; Protocol Last Admin: 02/25/19 16:39 Dose: Not Given Ipratropium [place] (Atrovent) 0.5 mg IH Q8H [facility] Last Admin: 02/25/19 19:37 Dose: 0.5 mg Levalbuterol HCl (Xopenex) 0.63 mg IH [id number] PRN PRN Reason: Shortness of Breath Levothyroxine Sodium (Synthroid) 25 mcg PO 0600 [facility] Polyethylene Glycol (Miralax) 17 gm PO DAILY [facility] Last Admin: 02/25/19 10:05 Dose: 17 gm Verapamil HCl (Calan Tab) 40 mg PO TID [facility] Last Admin: 02/25/19 18:55 Dose: 40 mg - Labs Labs: 02/25/19 10:45 02/25/19 10:45 PT 15.7 SECONDS (9.4-12.5) H 02/22/19 16:40 INR 1.41 02/22/19 16:40 APTT 30.8 Seconds (26.9-38.3) 02/22/19 16:40 Attending/Attestation - Attestation I have personally seen and examined this patient.: Yes I have fully participated in the care of the patient.: Yes I have reviewed all pertinent clinical information, including history, physical exam and plan: Yes
[2019-02-25] MEDS ORDERED: Digoxin 250 mcg (0.25 mg) Tab PO STA (08:13)
[2019-02-25] MEDS: Insulin Reg-LOW-Coverage SC SCH ×4 (08:15→23:53)
[2019-02-25 08:23] VITALS: PULSE 122
[2019-02-25] MEDS: Cefepime 1gm in NS 100ml 1 GM/100 ML BAG IVPB SCH (10:05)
[2019-02-25] MEDS: POLYETHYLENE GLYCOL 3350 17 GM/Dose PACKET PO SCH (10:05)
[2019-02-25 10:57] LABS: HEMOGLOBIN 10.7 g/dL (12.0-16.0); MEAN CELL VOLUME 83.8 fl (80.0-105.0); MEAN CORPUSCULAR HEMOGLOBIN 26.3 pg (25.0-35.0); MEAN CORPUSCULAR HGB CONC 31.4 g/dl (31.0-37.0); MEAN PLATELET VOLUME 8.4 fl (7.0-11.0); RBC 4.07 10^6/uL (3.5-6.1); RED CELL DISTRIBUTION WIDTH 16.9 % (11.5-14.5); WHITE BLOOD COUNT 13.2 10^3/uL (4.5-11.0)
[2019-02-25] MEDS ORDERED: Sodium Chloride 0.9% 100 ML IV SCH (11:00)
[2019-02-25 11:08] LABS: ALBUMIN 3.1 g/dL (3.0-4.8); ALT/SGPT 27 U/L (7-56); AST/SGOT 23 U/L (14-36); BLOOD UREA NITROGEN 20 mg/dL (7-21); CALCIUM 8.9 mg/dL (8.4-10.5); GFR NON-AFRICAN AMERICAN 60
[2019-02-25 11:21] LABS: FREE T4 0.97 ng/dL (0.78-2.19)
[2019-02-25] MEDS: Budesonide 0.5 mg/2 ml Inhal Susp UD IH SCH ×2 (11:31→19:37)
[2019-02-25] MEDS: Ipratropium 0.02% Inhal Soln (0.5 mg/2.5 ml) UD IH SCH ×2 (11:31→19:37)
--- NOTE | 2019-02-25 11:54 | PN ---
DATE: 02/25/2019 PULMONARY PROGRESS NOTE REFERRING PHYSICIAN: Bernadine Arrington MD. SUBJECTIVE: The patient is seen sitting in chair in room. No acute distress. No overnight events reported. Nursing staff reports that this morning the patient noted with tachycardia, was given stat dose of verapamil and placed on standing order of 40 mg three times a day of verapamil. At this time, the patient with no complaints. No headache, rhinitis, chest pain, abdominal pain, shortness of breath, nausea, vomiting, diarrhea, cough, leg pain or leg swelling reported. OBJECTIVE: GENERAL: No acute distress. VITAL SIGNS: Blood pressure 146/72, pulse 88, temperature 98.2, oxygen saturation 98% on room air. HEENT: Moist mucous membranes. NECK: Supple. No JVD. RESPIRATORY: Fair airflow bilaterally. CARDIOVASCULAR: S1, S2 regular. ABDOMEN: Soft, nontender. No distension. EXTREMITIES: No bilateral lower extremity edema. NEUROLOGIC: Awake, alert, and verbal. Following commands. MEDICATIONS: Reviewed. Tylenol 650 mg every 6 hours p.r.n. for fever and pain, Eliquis 2.5 mg twice a day, aspirin 81 mg daily, cefepime 1 g every 12 hours, Pepcid 40 mg at bedtime, Humulin R sliding scale a.c. and at bedtime, Xopenex 0.63 mg inhalation every 6 hour p.r.n., Flagyl 500 mg every 8 hours, MiraLax 17 g daily, verapamil 40 mg three times a day. LABORATORY DATA: Reviewed. POC glucose 94, hemoglobin A1C 6.3, vitamin B12 584, folate 14.2, cortisol level 3.3. EKG show atrial flutter with variable AV block. Chest CT shows no evidence of pulmonary embolism, bronchiectasis in the right lower lobe. Echocardiogram report pending. IMPRESSION AND PLAN: Chronic obstructive pulmonary disease, hypotension, uterine prolapse, rectal prolapse, atrial fibrillation, atrial flutter, anemia, hydronephrosis, hypertension, orthostatic vital signs written on this patient this morning showing lying down blood pressure 146/72, sitting blood pressure 147/76, standing blood pressure 133/94. No orthostatic hypotension noted. The patient is currently on antibiotic therapy. Currently on anticoagulation therapy. We will place the patient on routine inhaled bronchodilator and corticosteroids, Atrovent and Pulmicort nebulizers every 8 hours. Fall precautions, gastric prophylaxis. We will followup echocardiogram when report is available. The patient was seen and examined by Dr. Maria. Discussed assessment and plan as described above. The patient was seen and examined by Liudmila Holloway, nurse practitioner. Discussed assessment and plan as described above. Thank you for this consult. We will follow with you. Liudmila Holloway APN Stanley Maria MD
--- NOTE | 2019-02-25 13:51 | CP.PCM.PCO ---
Additional Comments - Additional Comments Additional Comments: Pt. seen, sitting up in chair, denied complaints, denied shortness of breath, denied palpitations, dizziness. s/p episode of rapid atrial fibrillation yesterday, with hypotension, yesterday,echo and recs per card. Digoxin ordered. with leukocytosis, unclear source, blood cx neg, CT abdomen with contrast pending to rule out abdominal source of infection. Orthostatic hypotension- IFV resumed. TSH high- Synthroid ordered. Will continue to monitor clinical status and follow closely.
--- NOTE | 2019-02-25 14:49 | CT ---
Date of service: 02/25/2019 PROCEDURE: CT Abdomen and Pelvis without intravenous contrast HISTORY: SIRS r/o intraabd source of infection COMPARISON: None. TECHNIQUE: Without contrast.. Contrast dose: Radiation dose: Total exam DLP = 469.41 mGy-cm. This CT exam was performed using one or more of the following dose reduction techniques: Automated exposure control, adjustment of the mA and/or kV according to patient size, and/or use of iterative reconstruction technique. FINDINGS: LOWER THORAX: Unremarkable. LIVER: Unremarkable. No gross lesion or ductal dilatation. GALLBLADDER AND BILE DUCTS: Unremarkable. PANCREAS: Unremarkable. No gross lesion or ductal dilatation. SPLEEN: Unremarkable. ADRENALS: Unremarkable. No mass. KIDNEYS AND URETERS: Unremarkable. No hydronephrosis. No solid mass. VASCULATURE: Unremarkable. No aortic aneurysm. Aortic calcification BOWEL: Unremarkable. No obstruction. No gross mural thickening. Diverticulosis of the sigmoid colon APPENDIX: Unremarkable. Normal appendix. PERITONEUM: Unremarkable. No free fluid. No free air. LYMPH NODES: Unremarkable. No enlarged lymph nodes. BLADDER: Unremarkable. REPRODUCTIVE: Unremarkable. BONES: Disc degeneration in the lower lumbar spine OTHER FINDINGS: None. IMPRESSION: No acute intra-abdominal findings
[2019-02-25] MEDS: Amoxicillin-Clav 875-125 mg Tab PO SCH (21:45)
[2019-02-26] MEDS: Levothyroxine 25 MCG TAB PO SCH (05:56)
--- NOTE | 2019-02-26 06:22 | CP.PCM.PN ---
Subjective - Date & Time of Evaluation Date of Evaluation: 02/26/19 Time of Evaluation: 06:22 - Subjective Subjective: tbd verapamil HR 156<---179 Asx Seen Objective - Vital Signs/Intake and Output Vital Signs (last 24 hours): Temp Pulse Resp BP Pulse Ox 98 F 156 H 18 117/55 L 99 02/25/19 15:56 02/26/19 05:25 02/25/19 15:56 02/25/19 18:55 02/25/19 15:56 Intake and Output: 02/25/19 02/26/19 18:59 06:59 Intake Total 1060 Balance 1060 - Medications Medications: Current Medications Acetaminophen (Tylenol 325mg Tab) 650 mg PO Q4H PRN PRN Reason: pain fever Amoxicillin/Clavulanate Potassium (Augmentin 875 Mg-125 Mg Tab) 1 tab PO Q12 [facility]; Protocol Stop: 03/02/19 22:01 Last Admin: 02/25/19 21:45 Dose: 1 tab Apixaban (Eliquis) 2.5 mg PO BID [facility]; Protocol Last Admin: 02/25/19 18:55 Dose: 2.5 mg Aspirin (Ecotrin) 81 mg PO DAILY [facility] Last Admin: 02/25/19 10:04 Dose: 81 mg Budesonide (Pulmicort Respules) 0.5 mg IH Q8H [facility] Last Admin: 02/25/19 19:37 Dose: 0.5 mg Famotidine (Pepcid) 40 mg PO HS [facility] Last Admin: 02/25/19 21:45 Dose: 40 mg Sodium Chloride (Sodium Chloride 0.9%) 1,000 mls @ 100 mls/hr IV .Q10H [facility] Last Admin: 02/26/19 00:00 Dose: Not Given Insulin Human Regular (Humulin R Low) 0 units SC ACHS [facility]; Protocol Last Admin: 02/25/19 23:53 Dose: Not Given Ipratropium [place] (Atrovent) 0.5 mg IH Q8H [facility] Last Admin: 02/25/19 19:37 Dose: 0.5 mg Levalbuterol HCl (Xopenex) 0.63 mg IH [id number] PRN PRN Reason: Shortness of Breath Levothyroxine Sodium (Synthroid) 25 mcg PO 0600 [facility] Last Admin: 02/26/19 05:56 Dose: 25 mcg Polyethylene Glycol (Miralax) 17 gm PO DAILY [facility] Last Admin: 02/25/19 10:05 Dose: 17 gm Verapamil HCl (Calan Tab) 40 mg PO TID [facility] Last Admin: 02/25/19 18:55 Dose: 40 mg - Labs Labs: 02/25/19 10:45 02/25/19 10:45 PT 15.7 SECONDS (9.4-12.5) H 02/22/19 16:40 INR 1.41 02/22/19 16:40 APTT 30.8 Seconds (26.9-38.3) 02/22/19 16:40
[2019-02-26] MEDS: Sodium Chloride 0.9% 1,000 ML IV SCH ×4 (07:15→18:55)
[2019-02-26] MEDS: Budesonide 0.5 mg/2 ml Inhal Susp UD IH SCH ×3 (07:41→19:21)
[2019-02-26] MEDS: Ipratropium 0.02% Inhal Soln (0.5 mg/2.5 ml) UD IH SCH ×3 (07:41→19:21)
[2019-02-26 07:47] LABS: HEMOGLOBIN 10.5 g/dL (12.0-16.0); MEAN CELL VOLUME 83.6 fl (80.0-105.0); MEAN CORPUSCULAR HEMOGLOBIN 26.1 pg (25.0-35.0); MEAN CORPUSCULAR HGB CONC 31.2 g/dl (31.0-37.0); MEAN PLATELET VOLUME 8.7 fl (7.0-11.0); RBC 4.03 10^6/uL (3.5-6.1); RED CELL DISTRIBUTION WIDTH 17.1 % (11.5-14.5); WHITE BLOOD COUNT 9.5 10^3/uL (4.5-11.0)
[2019-02-26 08:07] LABS: ALBUMIN 2.8 g/dL (3.0-4.8); ALT/SGPT 24 U/L (7-56); AST/SGOT 25 U/L (14-36); BLOOD UREA NITROGEN 19 mg/dL (7-21); CALCIUM 8.6 mg/dL (8.4-10.5); GFR NON-AFRICAN AMERICAN > 60
[2019-02-26] MEDS: Insulin Reg-LOW-Coverage SC SCH ×4 (08:44→22:23)
[2019-02-26] MEDS: POLYETHYLENE GLYCOL 3350 17 GM/Dose PACKET PO SCH (09:07)
[2019-02-26] MEDS: Amoxicillin-Clav 875-125 mg Tab PO SCH ×2 (09:19→22:09)
[2019-02-26] MEDS ORDERED: Digoxin 500 mcg/2ml (0.5 mg/2ml) Inj IVP ONE (11:36)
--- NOTE | 2019-02-26 11:38 | CP.PCM.PN ---
Subjective - Date & Time of Evaluation Date of Evaluation: 02/26/19 Time of Evaluation: 07:00 - Subjective Subjective: Awake, alert, no distress Reason for consultation and follow up:Cardiac evaluation of tachycardia, history of atrial fibrillation Seen and examined by me and Dr. Triana Objective - Vital Signs/Intake and Output Vital Signs (last 24 hours): Temp Pulse Resp BP Pulse Ox 98.2 F 120 H 20 144/78 96 02/26/19 06:00 02/26/19 09:20 02/26/19 06:00 02/26/19 09:20 02/26/19 06:00 Intake and Output: 02/26/19 02/26/19 06:59 18:59 Intake Total 1180 Balance 1180 - Medications Medications: Current Medications Acetaminophen (Tylenol 325mg Tab) 650 mg PO Q4H PRN PRN Reason: pain fever Amoxicillin/Clavulanate Potassium (Augmentin 875 Mg-125 Mg Tab) 1 tab PO Q12 [facility]; Protocol Stop: 03/02/19 22:01 Last Admin: 02/26/19 09:19 Dose: 1 tab Apixaban (Eliquis) 2.5 mg PO BID [facility]; Protocol Last Admin: 02/26/19 09:21 Dose: 2.5 mg Aspirin (Ecotrin) 81 mg PO DAILY [facility] Last Admin: 02/26/19 09:20 Dose: 81 mg Budesonide (Pulmicort Respules) 0.5 mg IH Q8H [facility] Last Admin: 02/26/19 07:41 Dose: 0.5 mg Digoxin (Lanoxin) 0.25 mg IVP ONCE ONE Stop: 02/26/19 11:37 Famotidine (Pepcid) 40 mg PO HS [facility] Last Admin: 02/25/19 21:45 Dose: 40 mg Sodium Chloride (Sodium Chloride 0.9%) 1,000 mls @ 100 mls/hr IV .Q10H [facility] Last Admin: 02/26/19 09:23 Dose: 100 mls/hr Insulin Human Regular (Humulin R Low) 0 units SC ACHS [facility]; Protocol Last Admin: 02/26/19 08:44 Dose: Not Given Ipratropium [place] (Atrovent) 0.5 mg IH Q8H [facility] Last Admin: 02/26/19 07:41 Dose: 0.5 mg Levalbuterol HCl (Xopenex) 0.63 mg IH [id number] PRN PRN Reason: Shortness of Breath Levothyroxine Sodium (Synthroid) 25 mcg PO 0600 [facility] Last Admin: 02/26/19 05:56 Dose: 25 mcg Polyethylene Glycol (Miralax) 17 gm PO DAILY [facility] Last Admin: 02/26/19 09:07 Dose: Not Given Verapamil HCl (Calan Tab) 40 mg PO TID [facility] Last Admin: 02/26/19 09:20 Dose: 40 mg - Labs Labs: 02/26/19 07:00 02/26/19 07:00 PT 15.7 SECONDS (9.4-12.5) H 02/22/19 16:40 INR 1.41 02/22/19 16:40 APTT 30.8 Seconds (26.9-38.3) 02/22/19 16:40 - Constitutional Appears: Non-toxic, No Acute Distress - Head Exam Head Exam: NORMAL INSPECTION, NORMOCEPHALIC - Eye Exam Eye Exam: Normal appearance Pupil Exam: NORMAL ACCOMODATION - ENT Exam ENT Exam: Mucous Membranes Moist, Normal Exam - Respiratory Exam Respiratory Exam: Decreased Breath Sounds, Clear to Ausculation Bilateral, NORMAL BREATHING PATTERN - Cardiovascular Exam Cardiovascular Exam: Tachycardia, +S1, +S2 - GI/Abdominal Exam GI & Abdominal Exam: Soft, Normal Bowel Sounds - Extremities Exam Extremities Exam: Full ROM, Normal Capillary Refill - Neurological Exam Neurological Exam: Alert, Awake, Oriented x3 - Psychiatric Exam Psychiatric exam: Normal Affect, Normal Mood - Skin Skin Exam: Dry, Normal Color, Warm Assessment and Plan - Assessment and Plan (Free Text) Assessment: An 84 year old female who came in to the ER due to generalized weakness and low blood pressure. She was just recently discharged from [facility] for pneumonia. History of atrial fibrillation on Eliquis, COPD, hard of hearing, depression, hydronephrosis, uterine prolapse, falls. Consult was called for tachycardia. Verapamil IV and Digoxin given. Off and on tachycardia. Started on oral Verapamil and PRN IV Verapamil. Blood pressure stable. Echo done pending results. Will follow up. Denies chest pain and shortness of breath. Pulmonary and ID on consult. Plan: No distress, feels cold Episode of tachycardia at 170's this morning PRN IV Verapamil given, heart rate down to ST 120's Digoxin given yesterday and today Blood pressure stable Echo done will follow results On Eliquis 2.5 mg BID,ASA 81 mg daily,Synthroid 25 mcg daily Verapamil 40 mg TID Continue current treatment Continue current medications Pulmonary and ID on consult Will follow up Plan and treatment discussed with Dr. Triana
--- NOTE | 2019-02-26 13:50 | CARD ---
APPROVED REPORT Date of service: 02/24/2019 EXAM: Two-dimensional and M-mode echocardiogram with Doppler and color Doppler. INDICATION Pulmonary Hypertention 2D DIMENSIONS Left Atrium (2D)4.7 (1.6-4.0cm)IVSd1.3 (0.7-1.1cm) LVDd3.9 (3.9-5.9cm)PWd1.3 (0.7-1.1cm) LVDs2.8 (2.5-4.0cm)FS (%) 29.8 % LVEF (%)57.6 (>50%) M-Mode DIMENSIONS Aortic Root2.40 (2.2-3.7cm)Aortic Cusp Exc.0.70 (1.5-2.0cm) Aortic Valve AoV Peak [id number]/Mariana Peak GR.14mmHg Mitral Valve E/A ratio0.0 TDI E/Lateral E'0.0E/Medial E'0.0 Tricuspid Valve TR Peak [id number] [id number] Peak Gr.29mmHg [id number] LEFT VENTRICLE The left ventricle is normal size. There is borderline to mild concentric left ventricular hypertrophy. The left ventricular function is normal.EF-55% There is normal LV segmental wall motion. Could not be assed As pt was in A fib at the tiime of study. No left ventricle thrombus noted on this study. There is no ventricular septal defect visualized. There is no left ventricular aneurysm. There is no mass noted in the left ventricle. RIGHT VENTRICLE The right ventricle is normal size. There is normal right ventricular wall thickness. The right ventricular systolic function is normal. ATRIA The left atrium is mildly dilated. The right atrium size is normal. The interatrial septum is intact with no evidence for an atrial septal defect. AORTIC VALVE The aortic valve is calcified but opens well. There is trace to mild aortic regurgitation. There is mild valvular aortic stenosis. There is no aortic valvular vegetation. MITRAL VALVE The mitral valve is thickened but opens well. Mitral annular calcification is mild to moderate. Mitral regurgitation is mild to moderate. There is no mitral valve stenosis. There is no evidence of mitral valve prolapse. TRICUSPID VALVE The tricuspid valve leaflets are thickened , but open well. There is mild to moderate tricuspid regurgitation.RVSP-39 mmof hg. There is no tricuspid valve stenosis. There is no tricuspid valve prolapse or vegetation. PULMONIC VALVE The pulmonary valve is normal in structure. There is trace to mild pulmonic valvular regurgitation. There is no pulmonic valvular stenosis. GREAT VESSELS The aortic root is normal in size. The ascending aorta is normal in size. The pulmonary artery is normal. The IVC is normal in size and collapses >50% with inspiration. PERICARDIAL EFFUSION There is no pleural effusion. There is no pericardial effusion. <Conclusion> The left ventricle is normal size. There is borderline to mild concentric left ventricular hypertrophy. The left ventricular function is normal.EF-55% There is trace to mild aortic regurgitation. There is mild valvular aortic stenosis. Mitral regurgitation is mild to moderate. There is mild to moderate tricuspid regurgitation.RVSP-39 mmof hg. The IVC is normal in size and collapses >50% with inspiration. There is no pericardial effusion.
--- NOTE | 2019-02-26 14:53 | PN ---
DATE: 02/26/2019 SUBJECTIVE: The patient is in bed in no acute distress. PHYSICAL EXAMINATION: VITAL SIGNS: On exam, temperature is 98, blood pressure is 140/70, respiratory rate of 18. HEENT: Unremarkable. NECK: Supple. HEART: Normal S1, S2. LUNGS: Decreased breath sounds. ABDOMEN: Soft and nontender. No rebound. No guarding. No masses. LABORATORY DATA: Reveals a white count of 9.5 and the chemistries are noted. Microbiology reveals the blood cultures are negative. Urine cultures are negative. Review of orders reveals the patient is on p.o. Augmentin. ASSESSMENT AND PLAN: This is an 84-year-old female who has had episode of hypotension at her doctor's office, admitted now with serous systemic inflammatory response syndrome, atrial fibrillation, anticoagulation, and rectal and uterus prolapse, anemia and hydronephrosis, completed cefepime and Flagyl. Currently on p.o. Augmentin 875 p.o. b.i.d. and x5 days. Dr. Yee's note is reviewed. We will follow closely with you. Shawn Reyes MD
--- NOTE | 2019-02-26 20:21 | PN ---
DATE: 02/26/2019 PULMONARY PROGRESS NOTE REFERRING PHYSICIAN: Bernadine Arrington MD SUBJECTIVE: She is out of bed to chair. Night was unremarkable. Still having AFib with rapid ventricular response, been on beta chance since yesterday and also calcium-channel chance. No chest pain. No nausea, vomiting, diarrhea. No leg pain or leg swelling. OBJECTIVE: GENERAL: No acute distress. VITAL SIGNS: Temperature is 98, heart rate is varying from 106-140, blood pressure 144/78, pulse ox 96% on room air. HEENT: Moist mucous membranes. No ulcer or thrush noted. NECK: Supple. No JVD. LUNGS: Have a fair airflow. HEART: Irregularly irregular, tachycardic. ABDOMEN: Soft, nontender. No organomegaly. EXTREMITIES: There is no edema. NEUROLOGIC: Awake, alert, and follows simple commands. MEDICATIONS: She is on Atrovent inhaled every 8 hours, Augmentin 1 tablet every 12 hours, Calan 40 mg three times a day, Ecotrin 81 mg daily, Eliquis 2.5 mg twice a day, MiraLax 17 g daily, Pepcid 40 mg at bedtime, Pulmicort inhaled every 8 hours, IV fluid normal saline 100 mL per hour, Synthroid 25 mcg daily, Tenormin 25 mg twice a day, Tylenol p.r.n., Xopenex inhaled every 6 hours p.r.n. LABORATORY DATA: Shows hemoglobin 10.5, hematocrit 33.7, WBC 9.5, platelet count is 371. Sodium 140, potassium 4.3, chloride 112, bicarbonate 21, BUN 19, creatinine 0.8, glucose 113, calcium 8.6, AST is 25, ALT 24, alk phos is 47. Albumin is 2.8. Microbiology: Blood culture, urine culture, there is no growth. IMPRESSION AND PLAN: Chronic obstructive lung disease, hypertension, history of uterine prolapse, rectal prolapse, atrial fibrillation, atrial flutter with rapid ventricular response, anemia, hydronephrosis, hypertension, history of orthostatic hypotension. Pulmonary point of view, doing well. Continue bronchodilator, keep head at 45 degrees. Spoke to family and nursing staff on anticoagulation, being followed by Cardiology, beta-chance, calcium-channel chance being adjusted to control the rate, may need sleep study upon discharge as outpatient. Thank you and we will follow with you. Stanley Maria MD [facility] # [id number]
[2019-02-27] MEDS: Sodium Chloride 0.9% 1,000 ML IV SCH (00:39)
[2019-02-27] MEDS: Levothyroxine 25 MCG TAB PO SCH (06:03)
--- NOTE | 2019-02-27 07:37 | CP.PCM.PN ---
Subjective - Date & Time of Evaluation Date of Evaluation: 02/27/19 Time of Evaluation: 07:10 - Subjective Subjective: Awake, alert, no distress, feels okay Reason for consultation and follow up:Cardiac evaluation of tachycardia, history of atrial fibrillation, on Eliquis Seen and examined by me and Dr. Triana Objective - Vital Signs/Intake and Output Vital Signs (last 24 hours): Temp Pulse Resp BP Pulse Ox 98.2 F 105 H 20 148/78 98 02/27/19 06:00 02/27/19 06:00 02/27/19 06:00 02/27/19 06:00 02/27/19 06:00 Intake and Output: 02/27/19 02/27/19 06:59 18:59 Intake Total 1570 Output Total 5 Balance 1565 - Medications Medications: Current Medications Acetaminophen (Tylenol 325mg Tab) 650 mg PO Q4H PRN PRN Reason: pain fever Amoxicillin/Clavulanate Potassium (Augmentin 875 Mg-125 Mg Tab) 1 tab PO Q12 [facility]; Protocol Stop: 03/02/19 22:01 Last Admin: 02/26/19 22:09 Dose: 1 tab Apixaban (Eliquis) 2.5 mg PO BID [facility]; Protocol Last Admin: 02/26/19 17:50 Dose: 2.5 mg Aspirin (Ecotrin) 81 mg PO DAILY [facility] Last Admin: 02/26/19 09:20 Dose: 81 mg Atenolol (Tenormin) 25 mg PO BID [facility] Last Admin: 02/26/19 17:50 Dose: 25 mg Budesonide (Pulmicort Respules) 0.5 mg IH Q8H [facility] Last Admin: 02/26/19 19:21 Dose: 0.5 mg Famotidine (Pepcid) 40 mg PO HS [facility] Last Admin: 02/26/19 22:10 Dose: 40 mg Sodium Chloride (Sodium Chloride 0.9%) 1,000 mls @ 100 mls/hr IV .Q10H [facility] Last Admin: 02/27/19 00:39 Dose: 100 mls/hr Insulin Human Regular (Humulin R Low) 0 units SC ACHS [facility]; Protocol Last Admin: 02/26/19 22:23 Dose: Not Given Ipratropium [place] (Atrovent) 0.5 mg IH Q8H [facility] Last Admin: 02/26/19 19:21 Dose: 0.5 mg Levalbuterol HCl (Xopenex) 0.63 mg IH [id number] PRN PRN Reason: Shortness of Breath Levothyroxine Sodium (Synthroid) 25 mcg PO 0600 [facility] Last Admin: 02/27/19 06:03 Dose: 25 mcg Polyethylene Glycol (Miralax) 17 gm PO DAILY [facility] Last Admin: 02/26/19 09:07 Dose: Not Given Verapamil HCl (Calan Tab) 40 mg PO TID [facility] Last Admin: 02/26/19 17:50 Dose: 40 mg - Labs Labs: 02/26/19 07:00 02/26/19 07:00 PT 15.7 SECONDS (9.4-12.5) H 02/22/19 16:40 INR 1.41 02/22/19 16:40 APTT 30.8 Seconds (26.9-38.3) 02/22/19 16:40 - Constitutional Appears: Non-toxic, No Acute Distress - Head Exam Head Exam: NORMAL INSPECTION, NORMOCEPHALIC - Eye Exam Eye Exam: Normal appearance Pupil Exam: NORMAL ACCOMODATION - ENT Exam ENT Exam: Mucous Membranes Moist, Normal Exam - Neck Exam Neck Exam: Full ROM, Normal Inspection - Respiratory Exam Respiratory Exam: Decreased Breath Sounds, Clear to Ausculation Bilateral, NORMAL BREATHING PATTERN - Cardiovascular Exam Cardiovascular Exam: Irregular Rhythm, +S1, +S2 Additional comments: Atrial fibrillation 80's - GI/Abdominal Exam GI & Abdominal Exam: Soft, Normal Bowel Sounds - Extremities Exam Extremities Exam: Full ROM, Normal Capillary Refill - Neurological Exam Neurological Exam: Alert, Awake, Oriented x3 - Psychiatric Exam Psychiatric exam: Normal Affect, Normal Mood - Skin Skin Exam: Dry, Normal Color, Warm Assessment and Plan - Assessment and Plan (Free Text) Assessment: An 84 year old female who came in to the ER due to generalized weakness and low blood pressure. She was just [place] [facility] [place]. History of atrial fibrillation on Eliquis, COPD, hard of hearing, depression, hydronephrosis, uterine prolapse, falls. Consult was called for tachycardia. Verapamil IV and Digoxin given. On oral Verapamil and PRN IV Verapamil. Blood pressure stable. Echo done and showed mild concentric LVH, LVEF 55%, trace to mild aortic regurgitation, mild valvular aortic stenosis,mild to moderate mitral and tricuspid regurgitation, RVSP39 mmHg. ICV normal. Positive for orthostatic hypotension and IV fluid given. Pulmonary and ID on consult. Heart rate controlled atrial fibrillation. Continue Eliquis. Denies chest pain and shortness of breath. Blood and urine culture no growth. Repeat orthostatic vital signs. Plan: No distress Controlled heart rate, atrial fibrillation 70-80's Blood pressure stable On Eliquis 2.5 mg BID,ASA 81 mg daily,Synthroid 25 mcg daily Verapamil 40 mg TID, Atenolol 25 mg BID Continue current treatment Continue current medications Pulmonary and ID on consult Repeat orthostatic vital signs. Discontinue IV fluids Discharge planning Will follow up Plan and treatment discussed with Dr. Triana
[2019-02-27] MEDS: Budesonide 0.5 mg/2 ml Inhal Susp UD IH SCH ×3 (07:46→19:40)
[2019-02-27] MEDS: Ipratropium 0.02% Inhal Soln (0.5 mg/2.5 ml) UD IH SCH ×3 (07:46→19:40)
[2019-02-27] MEDS: Insulin Reg-LOW-Coverage SC SCH ×4 (08:03→22:30)
[2019-02-27] MEDS: Amoxicillin-Clav 875-125 mg Tab PO SCH ×2 (09:55→22:30)
[2019-02-27] MEDS: POLYETHYLENE GLYCOL 3350 17 GM/Dose PACKET PO SCH (09:56)
[2019-02-27 10:16] LABS: URINE BILIRUBIN NEGATIVE (NEGATIVE); URINE BLOOD NEGATIVE (NEGATIVE); URINE GLUCOSE (UA) NEGATIVE (NEGATIVE); URINE LEUKOCYTE ESTERASE NEGATIVE Leu/uL (NEGATIVE); URINE PROTEIN NEGATIVE mg/dL (<30 mg/dL); URINE UROBILINOGEN 0.2 E.U./dL (<1 E.U./dL)
[2019-02-27 10:17] LABS: URINE APPEARANCE CLEAR (CLEAR); URINE COLOR YELLOW (YELLOW)
--- NOTE | 2019-02-27 16:05 | PN ---
DATE: 02/27/2019 SUBJECTIVE: The patient is in bed in no acute distress, nontoxic. PHYSICAL EXAMINATION: VITAL SIGNS: On exam, temperature is 98, blood pressure is 140/70, respiratory rate of 20, heart rate of 94. HEENT: Examination of HEENT is unremarkable. NECK: Supple. LUNGS: Have decreased breath sounds. HEART: Normal S1, S2. ABDOMEN: Soft, nontender. LABORATORY DATA: Laboratory examination reveals a white count of 9.5, hemoglobin of 10. Chemistries are noted and urinalysis is noted. Microbiology is negative. Review of orders reveals the patient to be on Augmentin. ASSESSMENT AND PLAN: A 84-year-old female with episode of hypotension at the doctor's office, now with systemic inflammatory response syndrome, atrial fibrillation, anticoagulation, rectal and uterus prolapse, anemia and hydronephrosis, completed with cefepime and Flagyl. Currently on Augmentin for 5 days, today is day #3 of 5 days of antibiotics. We will follow with you. Shawn Reyes MD
--- NOTE | 2019-02-27 20:20 | PN ---
DATE: 02/27/2019 PULMONARY PROGRESS NOTE REFERRING PHYSICIAN: Bernadine Arrington MD SUBJECTIVE: She is out of bed to chair, feels better. Decreased cough. No shortness of breath. No palpitation. No nausea, no vomiting, diarrhea, leg pain or leg swelling. OBJECTIVE: GENERAL: In no acute distress. VITAL SIGNS: Temperature is 98, heart rate is 89, respiratory rate is 20, blood pressure is 170/90, and pulse ox 98% on room air. HEENT: Moist mucous membrane. Crowded airway. NECK: Supple. No JVD. LUNGS: Fair airflow. HEART: Irregularly irregular. ABDOMEN: Soft and nontender. No organomegaly. EXTREMITIES: There is no edema. NEUROLOGIC: Awake and follows simple commands. MEDICATIONS: She is on Atrovent 0.5 mg inhaled every 8 hours, Augmentin 875 mg twice a day, verapamil 40 mg three times a day, Ecotrin 81 mg daily, Eliquis 2.5 mg twice a day, insulin coverage, MiraLax 17 g daily, Pepcid 40 mg daily, Pulmicort inhaled twice a day, Synthroid 25 mcg daily, Tenormin 25 mg twice a day, Tylenol p.r.n., and Xopenex inhaled every 6 hours p.r.n. LABORATORY DATA: Reviewed. Blood sugar this morning is 124. Microbiology, blood culture and urine culture unremarkable. IMPRESSION AND PLAN: Chronic obstructive lung disease, hypertension, history of uterine prolapse, rectal prolapse, atrial fibrillation with rapid ventricular response, anemia, hydronephrosis and hypertension. Pulmonary point of view, doing well. Case discussed with nursing staff. Spoke to family at bedside. All the questions answered. Pulmonary point of view, she is doing okay. Continue beta chance and Cardizem for atrial fibrillation with rapid ventricular response. Sleep apnea precaution. We will recommend sleep study upon discharge as outpatient and pulmonary function tests upon discharge as outpatient. Continue cardiac monitoring for now. Thank you and we will follow with you. Stanley Maria MD
--- NOTE | 2019-02-27 20:52 | PN ---
DATE: 02/26/2019 SUBJECTIVE: The patient is an 84-year-old female. Looking comfortable. No fever. No chills. No hematuria or hematochezia. Had uterine prolapse. Sitting on the chair. Family is around. Has atrial fibrillation with rapid ventricular response. The patient is on calcium channel blockers and beta blockers. Positive fibrillation. The patient is nonsymptomatic. Sometimes little confused. PHYSICAL EXAMINATION: VITAL SIGNS: Temperature 98, heart rate 140, blood pressure 144/78, pulse oximetry 96%. HEENT: Head: Normocephalic, atraumatic. Eyes: PERRLA. Extraocular muscles intact. Conjunctivae clear. Nose patent. Mucous membranes moist. NECK: Supple. No carotid bruits. No JVD. No thyromegaly. CHEST: Bilaterally symmetrical. HEART: S1 and S2 positive. LUNGS: Clear to auscultation. ABDOMEN: Soft. Bowel sounds present. No organomegaly. EXTREMITIES: No edema. No cyanosis. NEUROLOGIC: The patient is awake and alert. Moving all four extremities. No focal deficits. MEDICATIONS: Atrovent, Augmentin, Calan, Eliquis, MiraLax, Pepcid, Pulmicort, Synthroid, Tenormin, Xopenex. LABORATORY DATA: Hemoglobin 10.5, hematocrit 33.7, white blood cells 9.5, platelets is 371. Sodium 140, potassium 4.3, BUN 19, creatinine 0.8, glucose 113, AST 25, ALT 24. ASSESSMENT AND PLAN: Ms. Carisa Rosa is an 84-year-old female with chronic obstructive pulmonary disease, hypertension, uterine prolapse, rectal prolapse; rectal prolapse was back but no uterine prolapse, so we called Obstetrics/Gynecology to see the patient as outpatient. The patient was seen by Obstetrics/Gynecology as outpatient before admission, they put a pessary, now pessary is out. History of atrial fibrillation with atrial flutter, rapid ventricular response. She is on beta blockers and calcium channel blockers. Anemia, hydronephrosis, hydroureter, history of orthostatic hypotension. Continue bronchodilators. Length of time discussion done with the patient's daughter. Everything explained. Social Studies Teacher and [employer] Systems Maintainer is on the case. Getting antibiotics. Gastrointestinal and deep venous thrombosis prophylaxis. Repeat labs. We will follow up. Bernadine Arrington MD [facility] # [id number]
--- NOTE | 2019-02-27 22:21 | PCM.URO ---
Urology Progress Note - Subjective Other: no gu change / will follow along - Objective Lab Results Last 24 Hours: Laboratory Results - last 24 hr 02/27/19 02/27/19 02/27/19 07:28 08:14 11:20 POC Glucose (mg/dL) 82 124 H Urine Color Yellow Urine Appearance Clear Urine pH 7.0 Ur Specific [place] 1.010 Urine Protein Negative Urine Glucose (UA) Negative Urine Ketones Negative Urine Blood Negative Urine Nitrate Negative Urine Bilirubin Negative Urine Urobilinogen 0.2 Ur Leukocyte Esterase Negative 02/27/19 02/27/19 16:15 21:06 POC Glucose (mg/dL) 185 H 152 H Urine Color Urine Appearance Urine pH Ur Specific [place] Urine Protein Urine Glucose (UA) Urine Ketones Urine Blood Urine Nitrate Urine Bilirubin Urine Urobilinogen Ur Leukocyte Esterase Intake & Output: Intake & Output 02/27/19 02/27/19 02/28/19 06:59 18:59 06:59 Intake Total 1570 1480 Output Total 5 Balance 1565 1480 Weight 130 lb Intake: IV 350 Left Antecubital 350 Oral 1220 1480 Output: Urine 5 Urine, Voided 5 Other: # Voids Urine, Voided 3 # Bowel Movements 3 1 Vital Signs: Vital Signs - 24 hr 02/27/19 02/27/19 02/27/19 00:00 02:00 04:21 Temperature 97.8 F 98.7 F Pulse Rate 84 82 94 H Respiratory 18 20 Rate Blood Pressure 95/72 L 161/88 H O2 Sat by Pulse 97 99 Oximetry 02/27/19 02/27/19 02/27/19 06:00 12:12 18:05 Temperature 98.2 F Pulse Rate 105 H 89 72 Respiratory 20 Rate Blood Pressure 148/78 118/74 O2 Sat by Pulse 98 Oximetry 02/27/19 02/27/19 19:24 19:28 Temperature 98 F 97.4 F L Pulse Rate 71 92 H Respiratory 18 20 Rate Blood Pressure 146/100 H 118/74 O2 Sat by Pulse 100 98 Oximetry
[2019-02-28] MEDS: Levothyroxine 25 MCG TAB PO SCH (06:11)
--- NOTE | 2019-02-28 07:13 | CP.PCM.PN ---
Subjective - Date & Time of Evaluation Date of Evaluation: 02/28/19 Time of Evaluation: 06:55 - Subjective Subjective: Lying in bed, Awake, alert, no distress, per RN, episode of agitation last night Reason for consultation and follow up:Cardiac evaluation of tachycardia, history of atrial fibrillation, on Eliquis Seen and examined by me and Dr. Triana Objective - Vital Signs/Intake and Output Vital Signs (last 24 hours): Temp Pulse Resp BP Pulse Ox 97.4 F L 86 18 113/57 L 98 02/27/19 19:28 02/28/19 05:13 02/27/19 21:00 02/27/19 21:00 02/27/19 21:00 Intake and Output: 02/28/19 02/28/19 06:59 18:59 Intake Total 1600 Balance 1600 - Medications Medications: Current Medications Acetaminophen (Tylenol 325mg Tab) 650 mg PO Q4H PRN PRN Reason: pain fever Amoxicillin/Clavulanate Potassium (Augmentin 875 Mg-125 Mg Tab) [address] [facility]; Protocol Stop: 03/02/19 22:01 Last Admin: 02/27/19 22:30 Dose: Not Given Apixaban (Eliquis) 2.[address] [facility]; Protocol Last Admin: 02/27/19 17:59 Dose: 2.5 mg Aspirin (Ecotrin) [address] [facility] Last Admin: 02/27/19 09:56 Dose: 81 mg Atenolol (Tenormin) [address] [facility] Last Admin: 02/27/19 17:59 Dose: 25 mg Budesonide (Pulmicort Respules) 0.5 mg IH Q8H [facility] Last Admin: 02/27/19 19:40 Dose: 0.5 mg Famotidine (Pepcid) [address] [facility] Last Admin: 02/27/19 22:30 Dose: Not Given Insulin Human Regular (Humulin R Low) [address] [facility]; Protocol Last Admin: 02/27/19 22:30 Dose: Not Given Ipratropium [place] (Atrovent) 0.5 mg IH Q8H [facility] Last Admin: 02/27/19 19:40 Dose: 0.5 mg Levalbuterol HCl (Xopenex) 0.63 mg IH [id number] PRN PRN Reason: Shortness of Breath Levothyroxine Sodium (Synthroid) [address] [facility] Last Admin: 02/28/19 06:11 Dose: 25 mcg Polyethylene Glycol (Miralax) [address] [facility] Last Admin: 02/27/19 09:56 Dose: 17 gm Verapamil HCl (Calan Tab) [address] [facility] Last Admin: 02/27/19 18:05 Dose: 40 mg - Labs Labs: 02/26/19 07:00 02/26/19 07:00 PT 15.7 SECONDS (9.4-12.5) H 02/22/19 16:40 INR 1.41 02/22/19 16:40 APTT 30.8 Seconds (26.9-38.3) 02/22/19 16:40 - Constitutional Appears: Non-toxic, No Acute Distress - Head Exam Head Exam: NORMAL INSPECTION, NORMOCEPHALIC - Eye Exam Eye Exam: Normal appearance Pupil Exam: NORMAL ACCOMODATION - ENT Exam ENT Exam: Mucous Membranes Moist, Normal Exam - Respiratory Exam Respiratory Exam: Decreased Breath Sounds, Clear to Ausculation Bilateral, NORMAL BREATHING PATTERN - Cardiovascular Exam Cardiovascular Exam: Irregular Rhythm, +S1, +S2 Additional comments: Telemetry atrial fibrillation 70-80's - GI/Abdominal Exam GI & Abdominal Exam: Soft, Normal Bowel Sounds - Extremities Exam Extremities Exam: Full ROM, Normal Capillary Refill - Neurological Exam Neurological Exam: Alert, Awake - Psychiatric Exam Psychiatric exam: Normal Affect, Normal Mood - Skin Skin Exam: Dry, Normal Color, Warm Assessment and Plan - Assessment and Plan (Free Text) Assessment: An 84 year old female who came in to the ER due to generalized weakness and low blood pressure. She was just recently discharged from [facility] for pneumonia. History of atrial fibrillation on Eliquis, COPD, hard of hearing, depression, hydronephrosis, uterine prolapse, falls. Consult was called for tachycardia. Verapamil IV and Digoxin given. On oral Verapamil and PRN IV Verapamil. Blood pressure stable. Echo done and showed mild concentric LVH, LVEF 55%, trace to mild aortic regurgitation, mild valvular aortic stenosis,mild to moderate mitral and tricuspid regurgitation, RVSP39 mmHg. ICV normal. Positive for orthostatic hypotension and IV fluid given. Pulmonary and ID on consult. Heart rate controlled atrial fibrillation. Continue Eliquis. Denies chest pain and shortnes s of breath. Blood and urine culture no growth. GYNE and Urology on consult. Continue oral antibiotics per ID. Will discontinue telemetry.Discharge planning. Plan: Episode of agitation last night Ativan PRN given Heart rate controlled, atrial fibrillation 70-80's Continue on Eliquis Will discontinue telemetry Blood pressure stable On Eliquis 2.5 mg BID,ASA 81 mg daily,Synthroid 25 mcg daily Verapamil 40 mg TID, Atenolol 25 mg BID Continue current treatment Continue current medications Pulmonary and ID on consult Continue oral antibiotics per ID Discharge planning Will follow up Plan and treatment discussed with Dr. Triana
[2019-02-28] MEDS: Ipratropium 0.02% Inhal Soln (0.5 mg/2.5 ml) UD IH SCH ×3 (07:48→19:18)
[2019-02-28] MEDS: Budesonide 0.5 mg/2 ml Inhal Susp UD IH SCH ×3 (07:50→19:18)
[2019-02-28] MEDS: Insulin Reg-LOW-Coverage SC SCH ×4 (08:06→21:45)
--- NOTE | 2019-02-28 09:09 | PN ---
DATE: 02/28/2019 PULMONARY PROGRESS NOTE REFERRING PHYSICIAN: Bernadine Arrington MD SUBJECTIVE: The patient is seen lying in bed. No acute distress. Nursing staff does report that last night, the patient had episodes of agitation. This morning, no agitation noted. No headache, rhinitis, shortness of breath, chest pain, abdominal pain, nausea, vomiting, diarrhea, leg pain, or leg swelling. No cough reported. OBJECTIVE: VITAL SIGNS: Blood pressure 141/87, pulse 86, temperature 98.6, oxygen saturation 96% on room air. GENERAL: No acute distress. HEENT: Moist mucous membranes. Crowded airway. NECK: Supple. No JVD. LUNGS: Fair airflow bilaterally. CARDIOVASCULAR: Irregular. ABDOMEN: Soft, nontender. No distention. No organomegaly. EXTREMITIES: No bilateral lower extremity edema. NEUROLOGIC: Awake, alert, and verbal. Following commands. MEDICATIONS: Reviewed. Tylenol 650 mg every 4 hours p.r.n. fever and pain, Augmentin one tablet every 12 hours, Eliquis 2.5 mg twice a day, aspirin 81 mg daily, atenolol 25 mg twice a day, Pulmicort 0.5 mg inhalation every 8 hours, Pepcid 40 mg at bedtime, Humulin R sliding scale a.c. and at bedtime, Atrovent 0.5 mg inhalation every 8 hours, Xopenex 0.63 mg inhalation every 6 hours p.r.n., Synthroid 75 mcg daily, MiraLax 17 g daily, verapamil 40 mg three times a day. LABORATORY DATA: Reviewed. POC glucose 103. IMPRESSION AND PLAN: Chronic obstructive lung disease, hypertension, history of uterine prolapse, rectal prolapse, atrial fibrillation with rapid ventricular response, anemia, hydronephrosis, hypertension. Pulmonary point of view, continue inhaled bronchodilators, continue antibiotic therapy. The patient is currently on anticoagulation therapy. Gastric prophylaxis. Sleep apnea precaution. Recommend the patient to have sleep study upon discharge as the outpatient. Recommend the patient to have full pulmonary function test upon discharge as outpatient. The patient was seen and examined with Dr. Maria. Discussed assessment and plan as described above. The patient was seen and examined by Liudmila Holloway, nurse practitioner. Discussed assessment and plan as described above. Thank you for this consult. We will follow with you. Liudmila Holloway APN Stanley Maria MD [facility] # [id number]
[2019-02-28] MEDS: Amoxicillin-Clav 875-125 mg Tab PO SCH ×2 (11:29→21:31)
[2019-02-28] MEDS: POLYETHYLENE GLYCOL 3350 17 GM/Dose PACKET PO SCH (11:29)
--- NOTE | 2019-02-28 12:45 | PN ---
DATE: 02/28/2019 SUBJECTIVE: The patient is in bed, in no acute distress, nontoxic. The patient seen earlier today in 362, bed 1. No fevers. PHYSICAL EXAMINATION: VITAL SIGNS: Temperature is 98, blood pressure is 141/80, respiratory rate 20. HEENT: Unremarkable. NECK: Supple. LUNGS: Decreased breath sounds. HEART: Normal S1, S2. ABDOMEN: Soft, nontender. LABORATORY DATA: Examination reveals white count of 9.5, hemoglobin of 10, platelets of 371. Chemistries are noted with a creatinine of 0.8. Urinalysis is noted. Microbiology reveals the blood cultures are negative, urine cultures are negative. MEDICATIONS: Review of orders reveals the patient is on p.o. Augmentin. ASSESSMENT AND PLAN: An 84-year-old female seen earlier today in 362, bed 1, with episode of hypotension at doctor's office with serous systemic inflammatory response syndrome, atrial fibrillation, anticoagulation, rectal and uterine prolapse, anemia, and hydronephrosis. Has completed cefepime and Flagyl. Currently on Augmentin, today is day #4 of five days, on oral Augmentin. Shawn Reyes MD
[2019-02-28 16:05] VITALS: PULSE 87; TEMP 98.4
--- NOTE | 2019-02-28 22:18 | PN ---
DATE: 02/28/2019 This case was discussed with Dr. Arrington. She is in agreement with the treatment plan. SUBJECTIVE: This is an 84-year-old female, came in with hypertension, leukocytosis, tachycardia. The patient is seen today at bedside with daughters at bedside. Daughters are interpretating . The patient denies chest pain or shortness of breath. Denies abdominal pain, hematuria, or hematochezia. Denies fevers or chills. PHYSICAL EXAMINATION: VITAL SIGNS: Temperature 98.4, pulse rate 87, BP 116/74, respiratory rate 18, and sat is 100% on room air. GENERAL: The patient appeared in no acute distress, chronically ill. HEENT: Normocephalic, atraumatic, PERRLA. Mucous membranes moist. NECK: Supple. Normal inspection. No thyromegaly. RESPIRATORY: Clear to auscultation. No wheeze. No rhonchi. CARDIOVASCULAR: S1 and S2. No JVD. ABDOMEN: Soft, distended. No organomegaly. No guarding. No tenderness. EXTREMITIES: The patient is moving all extremities. No calf tenderness. No edema. SKIN: Intact. NEUROLOGIC: The patient is alert and oriented x2 to 3. MEDICATIONS: The patient continues on Augmentin every 12 hours, Eliquis 2.5 mg b.i.d., aspirin 81 mg daily, Tenormin 25 mg b.i.d., Pulmicort, Pepcid 40 mg p.o. at bedtime, Accu-Chek before meals and at bedtime, Novolin insulin coverage, Atrovent, levalbuterol, Synthroid 25 mcg, MiraLax daily, verapamil 80 mg t.i.d. LABORATORY DATA: No current laboratory for 02/28/2019. Reviewed labs for 02/26/2019. ASSESSMENT AND PLAN: This is an 84-year-old female, came in with leukocytosis, hypertension, tachycardia, chronic obstructive pulmonary disease, history of rectal and uterine prolapse. The patient was seen by Obstetrics/Gynecology. Cardiology is on the case. Pulmonology is on the case. The patient was evaluated by transitional care unit and accepted for further rehabilitation. Blood pressure remains stable. Heart rate remains stable in the 80s. The patient is to continue verapamil and Tenormin. We will follow up with the patient. ALL ABOVE NOTED , AGREED WITH EXPERIMENTAL DISPLAY BUILDER TREATMENT PLAN , LABS ,MEDS AND CHART NOTED , EDUCATION DONE Nico Cuellar APN Bernadine Arrington MD [facility]
[2019-03-01] MEDS: Levothyroxine 25 MCG TAB PO SCH (05:56)
--- NOTE | 2019-03-01 07:04 | CP.PCM.PN ---
Subjective - Date & Time of Evaluation Date of Evaluation: 03/01/19 Time of Evaluation: 06:43 - Subjective Subjective: Lying in bed, Awake, alert, no distress Reason for consultation and follow up: Cardiac evaluation of tachycardia, history of atrial fibrillation, on Eliquis, Seen and examined by me and Dr. Triana Objective - Vital Signs/Intake and Output Vital Signs (last 24 hours): Temp Pulse Resp BP Pulse Ox 98.4 F 87 18 116/74 100 02/28/19 16:03 02/28/19 18:01 02/28/19 16:03 02/28/19 18:01 02/28/19 16:03 Intake and Output: 03/01/19 03/01/19 06:59 18:59 Intake Total 1320 Balance 1320 - Medications Medications: Current Medications Acetaminophen (Tylenol 325mg Tab) 650 mg PO Q4H PRN PRN Reason: pain fever Amoxicillin/Clavulanate Potassium (Augmentin 875 Mg-125 Mg Tab) 1 tab PO Q12 [facility]; Protocol Stop: 03/02/19 22:01 Last Admin: 02/28/19 21:31 Dose: 1 tab Apixaban (Eliquis) 2.5 mg PO BID [facility]; Protocol Last Admin: 02/28/19 18:04 Dose: 2.5 mg Aspirin (Ecotrin) 81 mg PO DAILY [facility] Last Admin: 02/28/19 11:29 Dose: 81 mg Atenolol (Tenormin) 25 mg PO BID [facility] Last Admin: 02/28/19 18:01 Dose: 25 mg Budesonide (Pulmicort Respules) 0.5 mg IH Q8H [facility] Last Admin: 02/28/19 19:18 Dose: 0.5 mg Famotidine (Pepcid) 40 mg PO HS [facility] Last Admin: 02/28/19 21:31 Dose: 40 mg Insulin Human Regular (Humulin R Low) 0 units SC [facility]; Protocol Last Admin: 02/28/19 21:45 Dose: Not Given Ipratropium [place] (Atrovent) 0.5 mg IH Q8H [facility] Last Admin: 02/28/19 19:18 Dose: 0.5 mg Levalbuterol HCl (Xopenex) 0.63 mg IH [id number] PRN PRN Reason: Shortness of Breath Levothyroxine Sodium (Synthroid) 25 mcg PO 0600 [facility] Last Admin: 03/01/19 05:56 Dose: 25 mcg Polyethylene Glycol (Miralax) 17 gm PO DAILY [facility] Last Admin: 02/28/19 11:29 Dose: 17 gm Verapamil HCl (Calan Tab) 80 mg PO TID [facility] Last Admin: 02/28/19 17:58 Dose: 80 mg - Labs Labs: 02/26/19 07:00 02/26/19 07:00 PT 15.7 SECONDS (9.4-12.5) H 02/22/19 16:40 INR 1.41 02/22/19 16:40 APTT 30.8 Seconds (26.9-38.3) 02/22/19 16:40 - Constitutional Appears: Non-toxic, No Acute Distress - Head Exam Head Exam: NORMAL INSPECTION, NORMOCEPHALIC - Eye Exam Eye Exam: Normal appearance Pupil Exam: NORMAL ACCOMODATION - ENT Exam ENT Exam: Mucous Membranes Moist, Normal Exam - Respiratory Exam Respiratory Exam: Decreased Breath Sounds, Clear to Ausculation Bilateral, NORMAL BREATHING PATTERN - Cardiovascular Exam Cardiovascular Exam: +S1, +S2 - GI/Abdominal Exam GI & Abdominal Exam: Soft, Normal Bowel Sounds - Extremities Exam Extremities Exam: Full ROM, Normal Capillary Refill - Neurological Exam Neurological Exam: Alert, Awake, Oriented x3 - Psychiatric Exam Psychiatric exam: Normal Affect, Normal Mood - Skin Skin Exam: Dry, Normal Color, Warm Assessment and Plan - Assessment and Plan (Free Text) Assessment: An 84 year old female who came in to the ER due to generalized weakness and low blood pressure. She was just recently discharged from [facility] [place] for pneumonia. History of atrial fibrillation on Eliquis, COPD, hard of hearing, depression, hydronephrosis, uterine prolapse, falls. Consult was called for tachycardia. Verapamil IV and Digoxin given. On oral Verapamil and PRN IV Verapamil. Blood pressure stable. Echo done and showed mild concentric LVH, LVEF 55%, trace to mild aortic regurgitation, mild valvular aortic stenosis,mild to moderate mitral and tricuspid regurgitation, RVSP39 mmHg. ICV normal. Positive for orthostatic hypotension and IV fluid given. Pulmonary and ID on consult. Heart rate controlled atrial fibrillation. Continue Eliquis. Denies chest pain and shortness of breath. Blood and urine culture no growth. GYNE and Urology on consult. Continue oral antibiotics per ID. Discharge planning possible discharge to TCU. No further cardiac work up at this time. Plan: No distress Heart rate controlled/stable Blood pressure stable On Eliquis 2.5 mg BID,ASA 81 mg daily,Synthroid 25 mcg daily Verapamil 40 mg TID, Atenolol 25 mg BID Continue current treatment Continue current medications Pulmonary and ID on consult Continue oral antibiotics per ID No further cardiac work up at this time. Discharge planning,awaiting transfer to TCU Will follow up Plan and treatment discussed with Dr. Triana
[2019-03-01] MEDS: Ipratropium 0.02% Inhal Soln (0.5 mg/2.5 ml) UD IH SCH ×2 (08:02→13:46)
[2019-03-01] MEDS: Budesonide 0.5 mg/2 ml Inhal Susp UD IH SCH ×2 (08:02→13:47)
[2019-03-01 08:09] VITALS: BP 134/77; RESP 20; O2SAT 97
--- NOTE | 2019-03-01 08:15 | CON ---
DATE OF CONSULTATION: 02/25/2019 CARDIOLOGY CONSULTATION REASON FOR CONSULTATION: Followup AFib with rapid ventricular rate, hypotension/hypertension, admitted with possible sepsis, history of chronic atrial fibrillation on anticoagulation at home. BRIEF CLINICAL HISTORY: This is an 84-year-old female with a past medical history significant for atrial fibrillation on Eliquis, rectal prolapse, uterine prolapse, brought by the family after the patient was found to be in hypotension, history of hypertension. The patient was seen by Dr. Arrington's office for evaluation of generalized weakness. When she presented to the office with 1 to 2 days of duration, found with a blood pressure of 70, so was sent to the ER. The patient was admitted on 02/22/2019. Yesterday, the patient had AFib with rapid ventricular rate, so a Cardiology consult was called. The patient denies any chest pain, shortness of breath, or any palpitations. The patient is a very poor historian and speaks Turkmen, but information obtained through the manager rn case and from the medical records. The patient denies any chest pain, denies shortness of breath, and denies any palpitation. Sometimes she feels palpitation. PAST MEDICAL HISTORY: Past history significant for atrial fibrillation on anticoagulation and Cardizem, history of diabetes and hypertension. SOCIAL HISTORY: Denies any history of alcohol abuse. Also, the patient has a history of rectal prolapse and uterine prolapse. REVIEW OF SYSTEMS: As per HPI. CURRENT MEDICATIONS: The patient is taking at home Eliquis 2.5 p.o. b.i.d., atorvastatin 20 mg daily, aspirin 81 mg daily, Cardizem 180 mg daily, Periactin 4 mg daily, clonazepam 0.4 mg daily, Megace 40 mg daily, Colace mg daily, Singulair 10 mg daily, Zoloft 100 mg daily, Januvia 50 mg daily, folic acid, and multivitamin. ALLERGIES: NO KNOWN DRUG ALLERGIES. PHYSICAL EXAMINATION: Height of the patient is 4 feet 11 inches. Weight of the patient is 130 pounds. Body mass index 26.3 kg per meter square. VITAL SIGNS: Temperature afebrile, heart rate 88, blood pressure 146/72. HEENT: PERRLA, extraocular muscles intact. NECK: Supple. No carotid bruits or thyromegaly. CHEST: Clear to auscultation. HEART: S1 and S2, regular. ABDOMEN: Soft. EXTREMITIES: Clubbing and cyanosis negative. LABORATORY DATA: Blood workup as follows: WBC hemoglobin and hematocrit are 10 and 33.9, platelets are 393. Chemistry shows sodium 140, potassium , anion gap of 30, BUN 23, creatinine 0.7 IMPRESSION: An 84-year-old female with a past medical history significant for chronic atrial fibrillation, admitted with sepsis, possible hypotension, history of atrial fibrillation. The patient is in atrial fibrillation with rapid ventricular rate. Denies any chest pain, shortness of breath, or any palpitation. This morning, Cardiology consult was called because of atrial fibrillation with rapid ventricular rate. The patient is scheduled for a CAT scan, but did not go because of the heart rate rapid. RECOMMENDATION: Will give IV digoxin 0.25 mg stat and give 2.5 of verapamil x2 and start 40 mg verapamil three times a day. On admission, it was reported that the patient was hypotensive. Dr. Arrington saw with blood pressure was 70, given IV fluids. On admission, ER blood pressure recorded 100/59. Yesterday, the patient had a blood pressure of . We will do orthostatic hypotension, and if it , we will continue IV fluid and start verapamil to control the heart rate. We will review the echo once it is available. We will follow with you. We will get TSH, lipid profile. On admission, the patient had a troponin of 0.01. On admission, the patient had an EKG that showed AFib low-voltage, heart rate of 84. We will follow with you. Thank you, Dr. Arrington, for providing us the opportunity in taking care of the patient, Carisa Rosa. Stanley Triana MD
[2019-03-01] MEDS: Insulin Reg-LOW-Coverage SC SCH (08:40)
[2019-03-01] MEDS ORDERED: Sodium Chloride 0.9% 1,000 ML IV SCH (09:00)
--- NOTE | 2019-03-01 09:06 | PN ---
This case was discussed with Dr. Arrington she is inagreement with treatment plan. DATE: 02/27/2019 SUBJECTIVE: An 84-year-old patient who came in with hypotension, leukocytosis, has a past medical history of AFib, hypotension, hypothyroidism, orthostatic hypotension, COPD. I saw the patient today. She was sitting up in a chair. Daughter at bedside. The patient was alert, Bel[place]ian speaking, daughter the drive thru order taker. The patient was denying chest pain, shortness of breath, abdominal pain, hematuria, hematochezia, fevers, or chills. The patient was anxious to go home. Thus far though she feels a lot better. Discussed TCU for rehab with daughter. Daughter is interested in taking the patient home. Been cleared by Cardiology and ID. PHYSICAL EXAMINATION VITAL SIGNS: Temperature 98.2, pulse rate 89, lying blood pressure 170/90, sitting blood pressure 162/82, standing blood pressure 142/79, O2 saturation 98% on room air, respiratory rate 20. GENERAL: The patient appeared in no acute distress, chronically ill. HEENT: Normocephalic, atraumatic. PERRLA. Mucous membranes moist. NECK: Supple. No thyromegaly. RESPIRATORY: Clear to auscultation. No wheeze. No rhonchi. CARDIOVASCULAR: S1 and S2. No JVD. No tachycardia. ABDOMEN: Soft, distended. No organomegaly. Positive bowel sounds. EXTREMITIES: Patient is moving all extremities. SKIN: Intact. No cyanosis. No edema. NEUROLOGIC: Alert and oriented x3. LABORATORY DATA: For 02/26/2019; white blood cell 9.5, hemoglobin 10.5, hematocrit 33.7, platelet count 321. Sodium 140, potassium 4.3, BUN 19, creatinine 0.8. Urinalysis reviewed. INR 1.41, PT 15.7. MEDICATIONS: The patient remains on Tylenol p.r.n., Augmentin every 12 hours, Eliquis, aspirin, atenolol, Pulmicort, insulin coverage a.c. and at bedtime, Pepcid, Atrovent, levalbuterol, Synthroid 25 mcg, MiraLax, Verapamil 40 mg t.i.d. ASSESSMENT AND PLAN: This is an 84-year-old female, multiple medical problems, most recently hypotension, leukocytosis, hypothyroidism, atrial fibrillation, atrioventricular block, was seen by Cardiology, medications were reviewed. The patient continues on Verapamil 40 mg 3 times a day. Also she continues on Tenormin, aspirin, and Eliquis. The patient continues Synthroid. The patient continues on Augmentin. I reviewed Infectious Disease notes. The patient has two more doses of p.o. antibiotics. Orthostatic blood pressures reviewed. Blood pressure is slightly high. Lying blood pressure 170/90, sitting 162/82, standing blood pressure 142/79. Heart rate stable at 89. Reviewed patient's medications and laboratory. The patient is more stable. No complaints of chest pains. ALL ABOVE NOTED , AGREED WITH SCREEN HANDLER AND ALL ABOVE . EDUCATION DONE . WILL F/U Nico Cuellar APN Bernadine Arrington MD FAISAL
[2019-03-01] MEDS: POLYETHYLENE GLYCOL 3350 17 GM/Dose PACKET PO SCH (11:28)
[2019-03-01] MEDS: Amoxicillin-Clav 875-125 mg Tab PO SCH (11:30)
--- NOTE | 2019-03-01 12:30 | PN ---
DATE: 03/01/2019 PULMONARY PROGRESS NOTE REFERRING PHYSICIAN: Bernadine Arrington MD SUBJECTIVE: The patient is seen sitting at the side of the bed in no acute distress. She reports feeling well today. No overnight events reported. Nursing staff reports that family is refusing TRCU placement. No headache, rhinitis, cough, shortness of breath, chest pain, abdominal pain, nausea, vomiting, diarrhea, leg pain, or leg swelling reported. OBJECTIVE: VITAL SIGNS: Blood pressure 134/77, pulse 87, temperature 98.4, oxygen saturation 97% on room air. GENERAL: No acute distress. HEENT: Moist mucous membranes, crowded airway. NECK: Supple. No JVD. LUNGS: Fair airflow bilaterally. CARDIOVASCULAR: Irregular. ABDOMEN: Soft, nontender. No distention, no organomegaly. EXTREMITIES: No bilateral lower extremity edema. NEUROLOGIC: Awake, alert, verbal, following commands. MEDICATIONS: Reviewed. Tylenol 650 mg every 4 hours p.r.n., Augmentin one tab every 12 hours, Eliquis 2.5 mg twice a day, aspirin 81 mg daily, atenolol 25 mg twice a day, Pulmicort 0.5 mg inhalation every 8 hours, Pepcid 40 mg at bedtime, Humulin R sliding scale before meals and at bedtime, Atrovent 0.5 mg inhalation every 8 hours, Xopenex 0.63 mg inhalation every 6 hours p.r.n., Synthroid 25 mcg daily, MiraLax 17 g daily, sodium chloride 0.9% at 1000 mL about 100 mL/hour, verapamil 80 mg three times a day. LABORATORY DATA: Reviewed. POC glucose 92. IMPRESSION AND PLAN: Chronic obstructive lung disease, hypertension, history of uterine prolapse, rectal prolapse, atrial fibrillation with rapid ventricular response, anemia, hydronephrosis, hypertension. Pulmonary point of view, continue inhaled bronchodilators, continue antibiotic therapy, currently on anticoagulation therapy, gastric prophylaxis. They suspect the patient may have some sleep apnea, sleep apnea precaution. Recommend physical therapy, out of bed to chair, physical therapy to ambulate with the patient to ensure safe discharge to home as family is refusing rehab placement. Also, recommend the patient on sleep study upon discharge as outpatient. Recommend the patient on full pulmonary function tests and follow the patient. Orthostatic blood pressures were done and lying down the patient's blood pressure was 134/77, sitting 127/82, standing 115/71, showing some orthostatic hypotension. Fall precaution in this patient, orthostatic hypotension precaution. The patient was seen and examined with Dr. Maria. Discussed assessment and plan as described above. The patient was seen and examined by Liudmila Holloway, nurse practitioner. Discussed assessment and plan as described above. Thank you for this consult. We will follow with you. Liudmila Holloway APN Stanley Maria MD [facility]
--- NOTE | 2019-03-01 16:56 | PN ---
DATE: 03/01/2019 SUBJECTIVE: The patient is in bed in no acute distress, nontoxic. PHYSICAL EXAMINATION: VITAL SIGNS: Temperature is 98, blood pressure is 130/70, respiratory rate 20. HEENT: Unremarkable. NECK: Supple. LUNGS: Have decreased breath sounds. HEART: Normal S1 and S2. ABDOMEN: Soft. LABORATORY DATA: Reveals a white count of 9.5, hemoglobin of 10, platelets of 371. Chemistries are noted. MEDICATIONS: Review of orders reveals the patient to be on p.o. Augmentin. ASSESSMENT AND PLAN: This is an 84-year-old female seen earlier today. The patient had an episode of hypotension at doctor's office. The patient had systemic inflammatory response syndrome, cultures are negative, today is day #5 of Augmentin. We will discontinue Augmentin after today's last dose. Shawn Reyes MD
== END 2019-03-01 16:00 | disposition home health service (06) | DRG 312 ==
LOC: ED 15:21 → OBSVTOIN 20:13 → ERH 20:13 → 3RNO 23:05
PROVIDERS: ADMIT Internal Medicine; ATTEND Internal Medicine
DX: I95.1 Orthostatic hypotension (principal); N13.30 Unspecified hydronephrosis; R65.10 Systemic inflammatory response syndrome (SIRS) of non-infectious origin without acute organ dysfunction; I48.92 Unspecified atrial flutter; I44.30 Unspecified atrioventricular block; K62.3 Rectal prolapse; I48.2 Chronic atrial fibrillation; E11.65 Type 2 diabetes mellitus with hyperglycemia; I10 Essential (primary) hypertension; N81.4 Uterovaginal prolapse, unspecified; D64.9 Anemia, unspecified; J43.9 Emphysema, unspecified; E78.5 Hyperlipidemia, unspecified; E03.9 Hypothyroidism, unspecified; Z79.01 Long term (current) use of anticoagulants; Z79.84 Long term (current) use of oral hypoglycemic drugs; Z79.82 Long term (current) use of aspirin; Z87.01 Personal history of pneumonia (recurrent)